=== PATIENT | male | born 1950 | race Native Hawaiian/Other Pacific Islander ===

== ENCOUNTER 2019-06-20 17:26 | Emergency (ER) | payer OTHER, SELFPAY ==
[2019-06-20] VITALS (17 sets, daily range): BP systolic 126–153; BP diastolic 67–120; PULSE 58–76; RESP 16–22; TEMP 36.6; O2SAT 92–98; BMI 31.4
--- NOTE | 2019-06-20 17:43 | W.ED.GENADLT ---
Documented by User: Jayy Rivera DO 06/20/19 17:46 HPI - General Adult General: Chief complaint: General Medical Stated complaint: gout Time Seen by Provider: 06/20/19 17:38 History of Present Illness: HPI narrative: Patient states he has pain on the entire left side of his body. It extends down his trunk through his leg and into his foot. Patient believed it was an attack of gout however there is no redness or inflammation anywhere along the extremity. Onset (ago): day(s) Location: back and lower extremity Severity: severe Quality: burning, aching and constant Pain Consistency: constant Relieving factors: none Exacerbating factors: movement Associated symptoms: Reports no associated symptoms Treatments prior to arrival: none Review of Systems General: Reports: 10 or more systems reviewed and unremarkable except in HPI and below Musc: Reports: back pain, extremity pain and joint pain; Denies: extremity swelling, joint swelling, redness, joint warmth or joint stiffness PFSH ED PFSH: Social History Smoking and tobacco status: current every day smoker Physical Exam Skin: COMMON NORMALS: no rashes or lesions noted, no wounds, skin turgor normal, no jaundice, no petechiae and no mottling GENERAL SKIN EXAM: no rashes or lesions noted and turgor normal Course Vital Signs: Vital signs: Vital Signs Temperature 97.8 F 06/20/19 17:46 Pulse Rate 64 06/20/19 22:10 Respiratory Rate 20 H 06/20/19 22:10 Blood Pressure 142/120 06/20/19 22:40 Pulse Oximetry 92 06/20/19 22:10 [facility] - General Adult Lab Data: Labs: Lab Results 06/20/19 06/20/19 06/20/19 Range/Units 17:55 17:55 17:55 WBC 15.6 H (4.0-10.0) 10^3/ uL RBC 5.60 H (4.1-5.3) 10^6/u L Hgb 15.4 (11.7-16.6) g/dL Hct 48.1 (42.0-52.0) % MCV 85.9 (80-94) fL MCH 27.5 L (28.0-34.0) pg MCHC 32.0 (30.0-36.0) g/dL RDW 16.0 H (12.1-15.1) % Plt Count 316 (130-400) 10^3/c mm MPV 11.0 H (7.4-10.4) fL Neut % (Auto) 84.2 % Lymph % (Auto) 7.1 % Routt % (Auto) 6.5 % Eos % (Auto) 0.8 % Baso % (Auto) 0.6 % Neut # (Auto) 13.1 H (1.8-7.7) 10^3/u L Lymph # (Auto) 1.1 (0.8-4.8) 10^3/u L Routt # (Auto) 1.0 H (0.2-0.9) 10^3/u L Eos # (Auto) 0.1 (0.0-0.8) 10^3/u L Baso # (Auto) 0.1 (0.0-0.1) 10^3/u L Nucleated RBC % (a uto) 0 % Nucleated RBCs # 0.0 /100WBC ESR 92 H (0-10) mm/hr D-Dimer (0-0.59) ug/mIFE U Sodium 135 L (136-145) mmol/L Potassium 4.4 (3.5-5.1) mmol/L Chloride 98 (98-107) mmol/L Carbon Dioxide 20 L (22-29) mmol/L Anion Gap 21.4 H (5-19) BUN 28 H (8-23) mg/dL Creatinine 1.2 (0.7-1.2) mg/dL Glucose 140 H (65-115) mg/dL Calculated Osmolal ity 279 L (285-295) mOsm/k g Lactate (0.5-2.2) mmol/L Uric Acid (3.4-7.0) mg/dL Calcium 10.6 H (8.5-10.5) mg/dL Magnesium (1.7-2.3) mg/dL Total Bilirubin 0.4 (0.15-1.2) mg/dL AST 12 (0-40) U/L ALT 9 (0-41) U/L Alkaline Phosphata se 148 H (40-130) IU/L Creatine Kinase (39-308) U/L C-Reactive Protein 86.6 H (0.0-4.9) mg/L Total Protein 8.9 H (6.6-8.7) g/dL Albumin 4.1 (3.5-5.2) g/dL Globulin 4.8 H (1.3-4.6) g/dL Urine Color (Yellow) Urine Appearance (CLEAR) Urine pH (5-7) Ur Specific Gravit y (1.005-1.030) Urine Protein (Negative) Urine Glucose (UA) (Normal) Urine Ketones (Negative) Urine Blood (Negative) Urine Nitrate (Negative) Urine Bilirubin (NEGATIVE) Urine Urobilinogen (Negative) mg/dL Ur Leukocyte Earlene ase (Negative) Urine RBC (0-2) /hpf Urine WBC (0-5) /hpf Ur Squamous Epith Cells (0-5) Urine Bacteria (NONE) 06/20/19 06/20/19 06/20/19 Range/Units 17:55 17:55 17:55 WBC (4.0-10.0) 10^3/ uL RBC (4.1-5.3) 10^6/u L Hgb (11.7-16.6) g/dL Hct (42.0-52.0) % MCV (80-94) fL MCH (28.0-34.0) pg MCHC (30.0-36.0) g/dL RDW (12.1-15.1) % Plt Count (130-400) 10^3/c mm MPV (7.4-10.4) fL Neut % (Auto) % Lymph % (Auto) % Routt % (Auto) % Eos % (Auto) % Baso % (Auto) % Neut # (Auto) (1.8-7.7) 10^3/u L Lymph # (Auto) (0.8-4.8) 10^3/u L Routt # (Auto) (0.2-0.9) 10^3/u L Eos # (Auto) (0.0-0.8) 10^3/u L Baso # (Auto) (0.0-0.1) 10^3/u L Nucleated RBC % (a uto) % Nucleated RBCs # /100WBC ESR (0-10) mm/hr D-Dimer 1.61 H (0-0.59) ug/mIFE U Sodium (136-145) mmol/L Potassium (3.5-5.1) mmol/L Chloride (98-107) mmol/L Carbon Dioxide (22-29) mmol/L Anion Gap (5-19) BUN (8-23) mg/dL Creatinine (0.7-1.2) mg/dL Glucose (65-115) mg/dL Calculated Osmolal ity (285-295) mOsm/k g Lactate (0.5-2.2) mmol/L Uric Acid 10.4 H (3.4-7.0) mg/dL Calcium (8.5-10.5) mg/dL Magnesium 2.1 (1.7-2.3) mg/dL Total Bilirubin (0.15-1.2) mg/dL AST (0-40) U/L ALT (0-41) U/L Alkaline Phosphata se (40-130) IU/L Creatine Kinase 33 L (39-308) U/L C-Reactive Protein (0.0-4.9) mg/L Total Protein (6.6-8.7) g/dL Albumin (3.5-5.2) g/dL Globulin (1.3-4.6) g/dL Urine Color (Yellow) Urine Appearance (CLEAR) Urine pH (5-7) Ur Specific Gravit y (1.005-1.030) Urine Protein (Negative) Urine Glucose (UA) (Normal) Urine Ketones (Negative) Urine Blood (Negative) Urine Nitrate (Negative) Urine Bilirubin (NEGATIVE) Urine Urobilinogen (Negative) mg/dL Ur Leukocyte Earlene ase (Negative) Urine RBC (0-2) /hpf Urine WBC (0-5) /hpf Ur Squamous Epith Cells (0-5) Urine Bacteria (NONE) 06/20/19 06/20/19 Range/Units 17:59 21:31 WBC (4.0-10.0) 10^3/ uL RBC (4.1-5.3) 10^6/u L Hgb (11.7-16.6) g/dL Hct (42.0-52.0) % MCV (80-94) fL MCH (28.0-34.0) pg MCHC (30.0-36.0) g/dL RDW (12.1-15.1) % Plt Count (130-400) 10^3/c mm MPV (7.4-10.4) fL Neut % (Auto) % Lymph % (Auto) % Routt % (Auto) % Eos % (Auto) % Baso % (Auto) % Neut # (Auto) (1.8-7.7) 10^3/u L Lymph # (Auto) (0.8-4.8) 10^3/u L Routt # (Auto) (0.2-0.9) 10^3/u L Eos # (Auto) (0.0-0.8) 10^3/u L Baso # (Auto) (0.0-0.1) 10^3/u L Nucleated RBC % (a uto) % Nucleated RBCs # /100WBC ESR (0-10) mm/hr D-Dimer (0-0.59) ug/mIFE U Sodium (136-145) mmol/L Potassium (3.5-5.1) mmol/L Chloride (98-107) mmol/L Carbon Dioxide (22-29) mmol/L Anion Gap (5-19) BUN (8-23) mg/dL Creatinine (0.7-1.2) mg/dL Glucose (65-115) mg/dL Calculated Osmolal ity (285-295) mOsm/k g Lactate 0.9 (0.5-2.2) mmol/L Uric Acid (3.4-7.0) mg/dL Calcium (8.5-10.5) mg/dL Magnesium (1.7-2.3) mg/dL Total Bilirubin (0.15-1.2) mg/dL AST (0-40) U/L ALT (0-41) U/L Alkaline Phosphata se (40-130) IU/L Creatine Kinase (39-308) U/L C-Reactive Protein (0.0-4.9) mg/L Total Protein (6.6-8.7) g/dL Albumin (3.5-5.2) g/dL Globulin (1.3-4.6) g/dL Urine Color Yellow (Yellow) Urine Appearance Clear (CLEAR) Urine pH 5 (5-7) Ur Specific Gravit y 1.020 (1.005-1.030) Urine Protein 2+ H (Negative) Urine Glucose (UA) Norm (Normal) Urine Ketones Negative (Negative) Urine Blood Neg (Negative) Urine Nitrate Negative (Negative) Urine Bilirubin Neg (NEGATIVE) Urine Urobilinogen Norm (Negative) mg/dL Ur Leukocyte Earlene ase Negative (Negative) Urine RBC None (0-2) /hpf Urine WBC None (0-5) /hpf Ur Squamous Epith Cells None (0-5) Urine Bacteria Trace (NONE) Discharge Plan Discharge Patient Disposition: Home, Self-Care Clinical Impression: Gout attack, Thyroid goiter Condition: Stable Prescriptions: New prednisone 10 mg tablets,dose pack See Rx Instructions .ROUTE .COMPLEX Qty: 21 RF: 0 Percocet 5-325 mg tablet 1 tab PO Q6H PRN (Reason: pain) Qty: 20 RF: 0 No Action hydrocodone-acetaminophen 5-325 mg tablet 1 tab PO Q6H PRN (Reason: Pain) RF: 0 tramadol 50 mg Tablet 50 mg PO Q6H PRN (Reason: Pain) RF: 0 pentoxifylline 400 mg Tablet Extended Release 400 mg PO BID RF: 0 tamsulosin 0.4 mg capsule 0.4 mg PO DAILY RF: 0 gemfibrozil 600 mg tablet 600 mg PO BID RF: 0 metformin 1,000 mg tablet 1,000 mg PO BID RF: 0 lisinopril 10 mg Tablet 10 mg PO DAILY RF: 0 indomethacin 50 mg capsule 50 mg PO TID RF: 0 glipizide 5 mg tablet 5 mg PO BID RF: 0 meclizine 25 mg Tablet,Chewable 25 mg PO TID PRN (Reason: NAUSEA/VOMITING) RF: 0 bupropion HCl 150 mg Tablet Extended Release 24 Hr 150 mg PO DAILY RF: 0 ferrous fumarate 325 mg (106 mg iron) Tablet 325 mg PO DAILY RF: 0 cholecalciferol (vitamin D3) 50 mcg (2,000 unit) capsule 50 mcg PO DAILY RF: 0 Discharge Orders: Discharge Order (Routine); Ordered 06/20/19 Ordered By: Maritza Sy Referrals: Karma Mullen MD [Physician] - 1-3 days Evan Rock DO [Primary Care Provider] - 1-3 days Discharge Diet: Advance as tolerated Discharge Activity: Increase activity as tolerated Patient Instructions: Gout, Acute Gouty Arthritis (ED) Activity Restrictions/Additional Instructions: Please return to the ER immediately for any of the signs or symptoms listed on your discharge instruction sheets, worsening/changing of your symptoms, you are not getting better as quickly as expected, or for ANY other cause or concerns. If your symptoms worsen or change you are welcome to return to the ER for further evaluation and care. Be certain to follow-up with your primary care physician regarding the abnormal findings of your thyroid. Discharge Date/Time: 06/20/19 22:47 Sign Out Sign Out Data: Patient Sign Out occurred on 06/20/19 at 18:15. Patient's care was discussed, and care was transferred from to Maritza Sy. Coding Level of Care Code ED Race Relations Professor for Chg Fwd Exam Problem Focused Documented by User: Maritza Sy 06/20/19 23:30 HPI - General Adult General: Chief complaint: General Medical Stated complaint: gout Time Seen by Provider: 06/20/19 17:38 [facility] ED PFSH: Social History Smoking and tobacco status: current every day smoker Course Vital Signs: Vital signs: Vital Signs Temperature 97.8 F 06/20/19 17:46 Pulse Rate 64 06/20/19 22:10 Respiratory Rate 20 H 06/20/19 22:10 Blood Pressure 142/120 06/20/19 22:40 Pulse Oximetry 92 06/20/19 22:10 MDM - General Adult MDM Narrative: Medical decision making narrative: 1800 - Patient signed over to me at change of shift from Dr. Rivera. Please see his note for his history, physical exam and medical decision-making notes. Patient tells me that he has had left-sided body pain for the past 2 weeks. Is been progressive since its onset. He complains of pain primarily in his left shoulder and his left hip and upper thigh. During this time he was seen at [facility] which consisted of a work-up of x-rays and labs which he says he was diagnosed with gout. Patient states that the medicine he was given is not helping. He denies any numbness or weakness or loss of sensation. He states his pain is just progressive to the point he cannot get around on his own at home. Any type of movement of these joints makes things worse and keeping them at rest makes them better. Patient states he had nothing similar to this in the past. On exam -patient is normocephalic and atraumatic, pupils equal round reactive to light and accommodation. Extraocular muscles are intact bilaterally, mucous membranes are pink and moist. Neck is supple without nuchal rigidity or meningismus. There is no cervical lymphadenopathy. There is no tenderness to palpation of the midline of his neck and he has full range of motion. Cardiovascular heart sounds are S1 and S2 without murmur, rub or gallop click or thrill. His heart had a regular rate and rhythm to auscultation. His lungs are clear to auscultation bilaterally without wheeze, rub or rhonchi. His abdomen was soft and nontender. There is no rebound, guarding or distention. Musculoskeletal exam was normal except for pain elicited by range of motion at the left shoulder and left hip upper femur. These areas did not demonstrate any type of skin lesion such as erythema, swelling, crepitance or pain to light touch. The joints were not hot or warm to the touch. Neurologically he was alert and oriented to person, place, time and situation. He had no gross motor deficits. His muscle strength was 5 out of 5 bilateral upper extremities and lower extremities. Sensation was intact to light sensation in and equal. 2200 -Nghia is feeling much better at this time. His uric acid is elevated and after a dose of steroids he is feeling much better. He states that the hydrocodone's that he received from [facility] did not take care of his pain. I discussed by phone all of the findings that were noted on his CT including the intimal flap, the mural thrombus, all of the findings that were abnormal. Dr. Ortiz feels that these are all chronic and they wrote no acute findings present. The patient is feeling so much better he is insisting upon going home at this time. I did offer him admission for pain control but he refuses. I see no evidence of infectious or metabolic etiology of his symptoms. I see no cardiac findings. Patient is now able to much more freely move his left shoulder and his left hip. He wants to go home so I will place him on a steroid taper as well as Percocet for pain. He agrees to follow-up with his doctor as well as an orthopedic doctor for further evaluation. He understands that he is welcome to return here at any time should his symptoms change/worsen or he simply change his mind. Lab Data: Attestation: I reviewed the patient's lab results. Labs: Lab Results 06/20/19 06/20/19 06/20/19 Range/Units 17:55 17:55 17:55 WBC 15.6 H (4.0-10.0) 10^3/ uL RBC 5.60 H (4.1-5.3) 10^6/u L Hgb 15.4 (11.7-16.6) g/dL Hct 48.1 (42.0-52.0) % MCV 85.9 (80-94) fL MCH 27.5 L (28.0-34.0) pg MCHC 32.0 (30.0-36.0) g/dL RDW 16.0 H (12.1-15.1) % Plt Count 316 (130-400) 10^3/c mm MPV 11.0 H (7.4-10.4) fL Neut % (Auto) 84.2 % Lymph % (Auto) 7.1 % Routt % (Auto) 6.5 % Eos % (Auto) 0.8 % Baso % (Auto) 0.6 % Neut # (Auto) 13.1 H (1.8-7.7) 10^3/u L Lymph # (Auto) 1.1 (0.8-4.8) 10^3/u L Routt # (Auto) 1.0 H (0.2-0.9) 10^3/u L Eos # (Auto) 0.1 (0.0-0.8) 10^3/u L Baso # (Auto) 0.1 (0.0-0.1) 10^3/u L Nucleated RBC % (a uto) 0 % Nucleated RBCs # 0.0 /100WBC ESR 92 H (0-10) mm/hr D-Dimer (0-0.59) ug/mIFE U Sodium 135 L (136-145) mmol/L Potassium 4.4 (3.5-5.1) mmol/L Chloride 98 (98-107) mmol/L Carbon Dioxide 20 L (22-29) mmol/L Anion Gap 21.4 H (5-19) BUN 28 H (8-23) mg/dL Creatinine 1.2 (0.7-1.2) mg/dL Glucose 140 H (65-115) mg/dL Calculated Osmolal ity 279 L (285-295) mOsm/k g Lactate (0.5-2.2) mmol/L Uric Acid (3.4-7.0) mg/dL Calcium 10.6 H (8.5-10.5) mg/dL Magnesium (1.7-2.3) mg/dL Total Bilirubin 0.4 (0.15-1.2) mg/dL AST 12 (0-40) U/L ALT 9 (0-41) U/L Alkaline Phosphata se 148 H (40-130) IU/L Creatine Kinase (39-308) U/L C-Reactive Protein 86.6 H (0.0-4.9) mg/L Total Protein 8.9 H (6.6-8.7) g/dL Albumin 4.1 (3.5-5.2) g/dL Globulin 4.8 H (1.3-4.6) g/dL Urine Color (Yellow) Urine Appearance (CLEAR) Urine pH (5-7) Ur Specific Gravit y (1.005-1.030) Urine Protein (Negative) Urine Glucose (UA) (Normal) Urine Ketones (Negative) Urine Blood (Negative) Urine Nitrate (Negative) Urine Bilirubin (NEGATIVE) Urine Urobilinogen (Negative) mg/dL Ur Leukocyte Earlene ase (Negative) Urine RBC (0-2) /hpf Urine WBC (0-5) /hpf Ur Squamous Epith Cells (0-5) Urine Bacteria (NONE) 06/20/19 06/20/19 06/20/19 Range/Units 17:55 17:55 17:55 WBC (4.0-10.0) 10^3/ uL RBC (4.1-5.3) 10^6/u L Hgb (11.7-16.6) g/dL Hct (42.0-52.0) % MCV (80-94) fL MCH (28.0-34.0) pg MCHC (30.0-36.0) g/dL RDW (12.1-15.1) % Plt Count (130-400) 10^3/c mm MPV (7.4-10.4) fL Neut % (Auto) % Lymph % (Auto) % Routt % (Auto) % Eos % (Auto) % Baso % (Auto) % Neut # (Auto) (1.8-7.7) 10^3/u L Lymph # (Auto) (0.8-4.8) 10^3/u L Routt # (Auto) (0.2-0.9) 10^3/u L Eos # (Auto) (0.0-0.8) 10^3/u L Baso # (Auto) (0.0-0.1) 10^3/u L Nucleated RBC % (a uto) % Nucleated RBCs # /100WBC ESR (0-10) mm/hr D-Dimer 1.61 H (0-0.59) ug/mIFE U Sodium (136-145) mmol/L Potassium (3.5-5.1) mmol/L Chloride (98-107) mmol/L Carbon Dioxide (22-29) mmol/L Anion Gap (5-19) BUN (8-23) mg/dL Creatinine (0.7-1.2) mg/dL Glucose (65-115) mg/dL Calculated Osmolal ity (285-295) mOsm/k g Lactate (0.5-2.2) mmol/L Uric Acid 10.4 H (3.4-7.0) mg/dL Calcium (8.5-10.5) mg/dL Magnesium 2.1 (1.7-2.3) mg/dL Total Bilirubin (0.15-1.2) mg/dL AST (0-40) U/L ALT (0-41) U/L Alkaline Phosphata se (40-130) IU/L Creatine Kinase 33 L (39-308) U/L C-Reactive Protein (0.0-4.9) mg/L Total Protein (6.6-8.7) g/dL Albumin (3.5-5.2) g/dL Globulin (1.3-4.6) g/dL Urine Color (Yellow) Urine Appearance (CLEAR) Urine pH (5-7) Ur Specific Gravit y (1.005-1.030) Urine Protein (Negative) Urine Glucose (UA) (Normal) Urine Ketones (Negative) Urine Blood (Negative) Urine Nitrate (Negative) Urine Bilirubin (NEGATIVE) Urine Urobilinogen (Negative) mg/dL Ur Leukocyte Earlene ase (Negative) Urine RBC (0-2) /hpf Urine WBC (0-5) /hpf Ur Squamous Epith Cells (0-5) Urine Bacteria (NONE) 06/20/19 06/20/19 Range/Units 17:59 21:31 WBC (4.0-10.0) 10^3/ uL RBC (4.1-5.3) 10^6/u L Hgb (11.7-16.6) g/dL Hct (42.0-52.0) % MCV (80-94) fL MCH (28.0-34.0) pg MCHC (30.0-36.0) g/dL RDW (12.1-15.1) % Plt Count (130-400) 10^3/c mm MPV (7.4-10.4) fL Neut % (Auto) % Lymph % (Auto) % Routt % (Auto) % Eos % (Auto) % Baso % (Auto) % Neut # (Auto) (1.8-7.7) 10^3/u L Lymph # (Auto) (0.8-4.8) 10^3/u L Routt # (Auto) (0.2-0.9) 10^3/u L Eos # (Auto) (0.0-0.8) 10^3/u L Baso # (Auto) (0.0-0.1) 10^3/u L Nucleated RBC % (a uto) % Nucleated RBCs # /100WBC ESR (0-10) mm/hr D-Dimer (0-0.59) ug/mIFE U Sodium (136-145) mmol/L Potassium (3.5-5.1) mmol/L Chloride (98-107) mmol/L Carbon Dioxide (22-29) mmol/L Anion Gap (5-19) BUN (8-23) mg/dL Creatinine (0.7-1.2) mg/dL Glucose (65-115) mg/dL Calculated Osmolal ity (285-295) mOsm/k g Lactate 0.9 (0.5-2.2) mmol/L Uric Acid (3.4-7.0) mg/dL Calcium (8.5-10.5) mg/dL Magnesium (1.7-2.3) mg/dL Total Bilirubin (0.15-1.2) mg/dL AST (0-40) U/L ALT (0-41) U/L Alkaline Phosphata se (40-130) IU/L Creatine Kinase (39-308) U/L C-Reactive Protein (0.0-4.9) mg/L Total Protein (6.6-8.7) g/dL Albumin (3.5-5.2) g/dL Globulin (1.3-4.6) g/dL Urine Color Yellow (Yellow) Urine Appearance Clear (CLEAR) Urine pH 5 (5-7) Ur Specific Gravit y 1.020 (1.005-1.030) Urine Protein 2+ H (Negative) Urine Glucose (UA) Norm (Normal) Urine Ketones Negative (Negative) Urine Blood Neg (Negative) Urine Nitrate Negative (Negative) Urine Bilirubin Neg (NEGATIVE) Urine Urobilinogen Norm (Negative) mg/dL Ur Leukocyte Earlene ase Negative (Negative) Urine RBC None (0-2) /hpf Urine WBC None (0-5) /hpf Ur Squamous Epith Cells None (0-5) Urine Bacteria Trace (NONE) Imaging Data^: CT Head: Radiologist's impression: [place] [address] CT Scan Report Signed Patient: Nghia Giron Unit #: [id number] : 1950 Age/Sex: 69 / M ADM Date: 06/20/19 Loc: ER Room/Bed: Attending Dr: Ordering Provider/Ordering MD: Maritza Sy DO Date of Service: 06/20/19 Procedure(s): CT head wo con* [id number] Accession Number(s): [id number] Report Number: [id number] PROCEDURE INFORMATION: Exam: CT Head Without Contrast Exam date and time: 06/20/2019 7:00 PM Age: 69 years old Clinical indication: Pain; Headache; Additional info: Lue weakness TECHNIQUE: Imaging protocol: Computed tomography of the head without contrast. Radiation optimization: All CT scans at this facility use at least one of these dose optimization techniques: automated exposure control; mA and/or kV adjustment per patient size (includes targeted exams where dose is matched to clinical indication); or iterative reconstruction. COMPARISON: MRI Head w/wo* [id number] 09/21/2018 12:07 PM RADIATION DOSE METRICS: Total DLP: 784.51 mGy-cm FINDINGS: Brain: No visible evidence of active or acute intracranial pathologic process. No visible evidence for intracranial hemorrhage. 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 Cerebral atrophic changes greater than that anticipated for patient's chronological age. Ventricles: No ventriculomegaly. Bones/joints: Unremarkable. No acute fracture. Sinuses: Visualized sinuses are unremarkable. No fluid levels. Mastoid air cells: Visualized mastoid air cells are well aerated. Soft tissues: Unremarkable. CT/CT head wo con* [id number] IMPRESSION: 1. No visible evidence of active or acute intracranial pathologic process. 2. Advanced small vessel ischemic disease with senile periventricular Radiation Dose CTDIVOL = (mGy): DLP = 784.51 (mGy-cm) Dictated By: Mike Triplett Signed By: Mike Triplett Signed Date/Time: 06/20/191919 DD/ 18 CT Cervical Spine: Radiologist's impression: [place] [address] CT Scan Report Signed Patient: Nghia Giron Unit #: [id number] : 1950 Age/Sex: 69 / M ADM Date: 06/20/19 Loc: ER Room/Bed: Attending Dr: Ordering Provider/Ordering MD: Maritza Sy DO Date of Service: 06/20/19 Procedure(s): CT cervical spin wo con* [id number] Accession Number(s): [id number] Report Number: [id number] PROCEDURE INFORMATION: Exam: CT Cervical Spine Without Contrast Exam date and time: 06/20/2019 7:00 PM Age: 69 years old Clinical indication: Neck pain TECHNIQUE: Imaging protocol: Computed tomography images of the cervical spine without contrast. Radiation optimization: All CT scans at this facility use at least one of these dose optimization techniques: automated exposure control; mA and/or kV adjustment per patient size (includes targeted exams where dose is matched to clinical indication); or iterative reconstruction. COMPARISON: No relevant prior studies available. RADIATION DOSE METRICS: Total DLP: 866.3 mGy-cm FINDINGS: Vertebrae: No acute fracture. Normal alignment. Discs/Spinal canal/Neural foramina: Advanced degenerative disease and degenerative disc disease with disc space height loss and associated spondylosis deformans C5/C6 and C6/C7. Less significant degenerative disc disease C7/T1. Facet arthrosis. Right paramedian focal annular disc bulge osteophyte complex C6/C7 with right neural foraminal stenosis and mild right anterolateral subtle cord effacement. Soft tissues: Unremarkable for age. Thyroid: Incidental note of thyromegaly. Lungs: Lung apices are normal. CT/CT cervical spin wo con* [id number] IMPRESSION: 1. Nonacute. 2. Advanced degenerative disease and degenerative disc disease with disc space height loss and associated spondylosis deformans C5/C6 and C6/C7. Radiation Dose CTDIVOL = (mGy): DLP = 866.3 (mGy-cm) Dictated By: Mike Triplett Signed By: Mike Triplett Signed Date/Time: 06/20/191925 DD/ 23 CTA AORTA: Radiologist's impression: [place] [address] CT Scan Report Signed Patient: Nghia Giron Unit #: [id number] : 1950 Age/Sex: 69 / M ADM Date: 06/20/19 Loc: ER Room/Bed: Attending Dr: Ordering Provider/Ordering MD: Maritza Sy DO Date of Service: 06/20/19 Procedure(s): CT angio chest abdomen pelvis Accession Number(s): [id number] Report Number: [id number] PROCEDURE INFORMATION: Exam: CT Angiography Chest With Contrast Exam date and time: 06/20/2019 8:55 PM Age: 69 years old Clinical indication: Chest pain; Abdominal pain; Generalized; Prior surgery; Surgery type: Gb, appy, bowel TECHNIQUE: Imaging protocol: Computed tomographic angiography of the chest with intravenous contrast. 3D rendering: MIP and/or 3D reconstructed images were created by the technologist. Radiation optimization: All CT scans at this facility use at least one of these dose optimization techniques: automated exposure control; mA and/or kV adjustment per patient size (includes targeted exams where dose is matched to clinical indication); or iterative reconstruction. Contrast material: VISI 320; Contrast volume: 95 ml; Contrast route: IV; COMPARISON: [facility] Abdomen/Pelvis [id number] 12/19/2018 2:38 PM RADIATION DOSE METRICS: Total DLP: 2926.3 mGy-cm FINDINGS: Pulmonary arteries: No grossly visible pulmonary arterial thrombus. Please note this was not a CTA pulmonary embolism protocol. Aorta: The thoracic aorta is nonaneurysmal. No visible intimal flap or dissection. Mild intramural thrombus. Aortic arch trunk vessels patent without evidence for hemodynamically significant stenosis. No grossly visible pulmonary embolism. Thyroid: Multinodular thyroid goiter with thyromegaly. Consideration might be given to follow-up ultrasound of the thyroid for further evaluation. Lungs: Rare focus of peripheral acinar emphysema. Mild dependent atelectasis. No visible active interstitial or alveolar airspace disease. Pleural space: Unremarkable. No pneumothorax. No pleural effusion. Heart: Cardiomegaly with left ventricular prominence. Coronary artery disease. Lymph nodes: No visible middle mediastinal or hilar lymphadenopathy. Marginally prominent posterior mediastinal right paraesophageal lymph node measuring 19 mm of indeterminate clinical significance. Bones/joints: Age-appropriate degenerative disease. Soft tissues: Unremarkable. IMPRESSION: 1. No visible evidence of acute cardiopulmonary process. 2. No visible evidence of aneurysmal dilatation of the thoracic aorta. 3. Multinodular thyroid goiter with thyromegaly. Consideration might be given to follow-up ultrasound of the thyroid for further evaluation. 4. Cardiomegaly with coronary artery disease. PROCEDURE INFORMATION: Exam: CT Angiography Abdomen and Pelvis With Contrast Exam date and time: 06/20/2019 8:55 PM Age: 69 years old Clinical indication: Chest pain; Abdominal pain; Generalized; Prior surgery; Surgery type: Gb, appy, bowel TECHNIQUE: Imaging protocol: Computed tomographic angiography of the abdomen and pelvis with intravenous contrast material. 3D rendering: MIP and/or 3D reconstructed images were created by the technologist. Radiation optimization: All CT scans at this facility use at least one of these dose optimization techniques: automated exposure control; mA and/or kV adjustment per patient size (includes targeted exams where dose is matched to clinical indication); or iterative reconstruction. Contrast material: VISI 320; Contrast volume: 95 ml; Contrast route: IV; COMPARISON: CTA Abdomen/Pelvis [id number] 12/19/2018 2:38 PM RADIATION DOSE METRICS: Total DLP: 2926.3 mGy-cm FINDINGS: Aorta: The abdominal aorta is nonaneurysmal (maximum diameter less than or equal to 30 mm). Again note of extensive intramural thrombus that has remained stable since prior study. Patent celiac and SMA arteries without visible hemodynamically significant stenosis. 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 Duplex renal arteries bilaterally without visible hemodynamically significant stenosis. 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 Maximum diameter of the right common iliac artery 20 mm and the left 14 mm. Again note of a short-segment intimal flap of the mid left common iliac artery stable since last evaluation. 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 Extensive arterial sclerotic disease. Celiac trunk and mesenteric arteries: See Aorta finding. Renal arteries: See Aorta finding. Right iliac arteries: See Aorta finding. Left iliac arteries: See Aorta finding. Liver: Assessment liver again reveals suspected right hepatic lobe cavernous hemangiomas that have remained stable since prior study. Gallbladder and bile ducts: Status post cholecystectomy. No intra or extrahepatic biliary ectasia. Pancreas: Pancreas unremarkable. No pancreatic ductal ectasia. Spleen: Spleen unremarkable. Adrenals: Adrenal glands unremarkable. Kidneys and ureters: Kidney stable. Again note of cortical scarring inferior pole left kidney. No hydronephrosis or perinephric fluid. No visible nephrolithiasis. Stomach and bowel: Nonobstructive bowel pattern. Diverticulosis coli without evidence for diverticulitis. No visible adynamic or reactive ileus. Appendix: No evidence of appendicitis. Intraperitoneal space: No visible mesenteritis/panniculitis or mesenteric lymphadenitis/lymphadenopathy. No visible intraperitoneal ascites. Lymph nodes: Unremarkable. No enlarged lymph nodes. Bladder: Urinary bladder without filling defect. Reproductive: Prostate hypertrophy. Bones/joints: Age-appropriate degenerative disease. Soft tissues: Unremarkable. Other findings: No appreciable significant change since 12/19/2018. CT/CT angio chest abdomen pelvis IMPRESSION: 1. 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 2. Again note of occlusion of the right superficial femoral artery. 3. 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 4. 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 5. Numerous other non nonurgent, nonemergent, chronic, and age related findings as detailed in text above. Radiation Dose CTDIVOL = (mGy): DLP = 2926.3 2926.3 (mGy-cm) Dictated By: Mike Triplett Signed By: Mike Triplett Signed Date/Time: 06/20/192135 DD/ 34 Discharge Plan Discharge Patient Disposition: Home, Self-Care Clinical Impression: Gout attack, Thyroid goiter Condition: Stable Prescriptions: New prednisone 10 mg tablets,dose pack See Rx Instructions .ROUTE .COMPLEX Qty: 21 RF: 0 Percocet 5-325 mg tablet 1 tab PO Q6H PRN (Reason: pain) Qty: 20 RF: 0 No Action hydrocodone-acetaminophen 5-325 mg tablet 1 tab PO Q6H PRN (Reason: Pain) RF: 0 tramadol 50 mg Tablet 50 mg PO Q6H PRN (Reason: Pain) RF: 0 pentoxifylline 400 mg Tablet Extended Release 400 mg PO BID RF: 0 tamsulosin 0.4 mg capsule 0.4 mg PO DAILY RF: 0 gemfibrozil 600 mg tablet 600 mg PO BID RF: 0 metformin 1,000 mg tablet 1,000 mg PO BID RF: 0 lisinopril 10 mg Tablet 10 mg PO DAILY RF: 0 indomethacin 50 mg capsule 50 mg PO TID RF: 0 glipizide 5 mg tablet 5 mg PO BID RF: 0 meclizine 25 mg Tablet,Chewable 25 mg PO TID PRN (Reason: NAUSEA/VOMITING) RF: 0 bupropion HCl 150 mg Tablet Extended Release 24 Hr 150 mg PO DAILY RF: 0 ferrous fumarate 325 mg (106 mg iron) Tablet 325 mg PO DAILY RF: 0 cholecalciferol (vitamin D3) 50 mcg (2,000 unit) capsule 50 mcg PO DAILY RF: 0 Discharge Orders: Discharge Order (Routine); Ordered 06/20/19 Ordered By: Maritza Sy Referrals: Karma Mullen MD [Physician] - 1-3 days Evan Rock DO [Primary Care Provider] - 1-3 days Discharge Diet: Advance as tolerated Discharge Activity: Increase activity as tolerated Patient Instructions: Gout, Acute Gouty Arthritis (ED) Activity Restrictions/Additional Instructions: Please return to the ER immediately for any of the signs or symptoms listed on your discharge instruction sheets, worsening/changing of your symptoms, you are not getting better as quickly as expected, or for ANY other cause or concerns. If your symptoms worsen or change you are welcome to return to the ER for further evaluation and care. Be certain to follow-up with your primary care physician regarding the abnormal findings of your thyroid. Discharge Date/Time: 06/20/19 22:47 Sign Out Sign Out Data: Patient Sign Out occurred on 06/20/19 at 18:15. Patient's care was discussed, and care was transferred from to Maritza Sy. Coding Level of Care Code ED Race Relations Professor for Chg Fwd Exam Problem Focused
--- NOTE | 2019-06-20 17:46 | USCV_ITS ---
BonitaNghia alegre Age: 69 Gender: M : 1950 Exam Date: 06/20/2019 18:19 Ordering Phys: Jayy Rivera DO Technologist: Maurice Umanzor Exam Location: [facility]_ Indication: LT LEG PAIN AND EDEMA HISTORY: Lower extremity swelling. PROCEDURES: Venous duplex imaging was performed in only the left lower extremity. The following venous structures were evaluated: common femoral vein, profunda vein, proximal portion of the greater saphenous vein, superficial femoral vein, and the popliteal vein. In addition, the posterior tibial and peroneal trunk were evaluated. FINDINGS: Normal 2-D Doppler and augmentation and compressibility throughout the lower extremity venous structures. Additional imaging through the proximal calf veins also reveals no thrombus. Limited evaluation of the greater saphenous vein is patent with no thrombus. CONCLUSIONS No DVT left lower extremity. Dr. Danni Segovia DO (Electronically Signed) Final Date: 21 June 2019 08:28 S
[2019-06-20] MEDS: ondansetron 2 mg/ML SDV 2 mL 4 MG IVP (17:49)
[2019-06-20] MEDS: morphine 4 mg/mL SDV 1 mL 2 MG IVP (17:49)
[2019-06-20] MEDS: sodium chloride 0.9% 500 ML IV (18:01)
--- NOTE | 2019-06-20 18:04 | PC.NURSE ---
SPO2 88%, pt placed on 2L per [place]. notified.
[2019-06-20 18:40] LABS: Basophils # 0.1 10^3/uL (0.0-0.1); Basophils % 0.6 %; Eosinophils # 0.1 10^3/uL (0.0-0.8); Eosinophils % 0.8 %; Hematocrit 48.1 % (42.0-52.0); Hemoglobin 15.4 g/dL (11.7-16.6); Lymphocytes # 1.1 10^3/uL (0.8-4.8); Lymphocytes % 7.1 %; Mean Corpuscular Hemoglobin 27.5 pg (28.0-34.0); Mean Corpuscular Volume 85.9 fL (80-94); Monocytes % 6.5 %; Neutrophils # 13.1 10^3/uL (1.8-7.7); Neutrophils % 84.2 %; Nucleated Red Blood Cells % 0 %; Platelet Count 316 10^3/cmm (130-400); White Blood Count 15.6 10^3/uL (4.0-10.0)
--- NOTE | 2019-06-20 18:40 | CTR_ITS ---
PROCEDURE INFORMATION: Exam: CT Head Without Contrast Exam date and time: 06/20/2019 7:00 PM Age: 69 years old Clinical indication: Pain; Headache; Additional info: Lue weakness TECHNIQUE: Imaging protocol: Computed tomography of the head without contrast. Radiation optimization: All CT scans at this facility use at least one of these dose optimization techniques: automated exposure control; mA and/or kV adjustment per patient size (includes targeted exams where dose is matched to clinical indication); or iterative reconstruction. COMPARISON: MRI Head w/wo* [id number] 09/21/2018 12:07 PM RADIATION DOSE METRICS: Total DLP: 784.51 mGy-cm FINDINGS: Brain: No visible evidence of active or acute intracranial pathologic process. No visible evidence for intracranial hemorrhage. 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 Cerebral atrophic changes greater than that anticipated for patient's chronological age. Ventricles: No ventriculomegaly. Bones/joints: Unremarkable. No acute fracture. Sinuses: Visualized sinuses are unremarkable. No fluid levels. Mastoid air cells: Visualized mastoid air cells are well aerated. Soft tissues: Unremarkable. CT/CT head wo con* [id number] IMPRESSION: 1. No visible evidence of active or acute intracranial pathologic process. 2. Advanced small vessel ischemic disease with senile periventricular Radiation Dose CTDIVOL = (mGy): DLP = 784.51 (mGy-cm)
--- NOTE | 2019-06-20 18:40 | XR_ITS ---
WS: [id number] LEFT SHOULDER: 2 VIEW(S) TECHNIQUE: Internal and external rotation. HISTORY: PAIN COMPARISON: None available. Severe degenerative changes at the AC joint. Hypertrophic bone formation with osteophytes and subchon dral cystic disease. Additional subchondral cystic changes over the humeral head. Visualized LEFT upper lung is clear. XR/XR shoulder LT min 2V* [id number] IMPRESSION: Severe degenerative changes at the AC joint and mild at the humeral head.
--- NOTE | 2019-06-20 18:40 | XR_ITS ---
WS: [id number] PELVIS AND LEFT HIP HISTORY: PAIN COMPARISON: None available. LEFT hip: No acute fracture or dislocation. No significant narrowing of the hip joint. No bone destru ction. No soft tissue abnormality. Minimal bilateral hip joint arthritis. No pelvic fracture or soft tissue abnormality. XR/XR hip LT 2-3V wo/w pel* [id number] IMPRESSION: 1. No hip fracture. 2. Mild bilateral hip joint arthritis.
--- NOTE | 2019-06-20 18:40 | CTR_ITS ---
PROCEDURE INFORMATION: Exam: CT Cervical Spine Without Contrast Exam date and time: 06/20/2019 7:00 PM Age: 69 years old Clinical indication: Neck pain TECHNIQUE: Imaging protocol: Computed tomography images of the cervical spine without contrast. Radiation optimization: All CT scans at this facility use at least one of these dose optimization techniques: automated exposure control; mA and/or kV adjustment per patient size (includes targeted exams where dose is matched to clinical indication); or iterative reconstruction. COMPARISON: No relevant prior studies available. RADIATION DOSE METRICS: Total DLP: 866.3 mGy-cm FINDINGS: Vertebrae: No acute fracture. Normal alignment. Discs/Spinal canal/Neural foramina: Advanced degenerative disease and degenerative disc disease with disc space height loss and associated spondylosis deformans C5/C6 and C6/C7. Less significant degenerative disc disease C7/T1. Facet arthrosis. Right paramedian focal annular disc bulge osteophyte complex C6/C7 with right neural foraminal stenosis and mild right anterolateral subtle cord effacement. Soft tissues: Unremarkable for age. Thyroid: Incidental note of thyromegaly. Lungs: Lung apices are normal. CT/CT cervical spin wo con* [id number] IMPRESSION: 1. Nonacute. 2. Advanced degenerative disease and degenerative disc disease with disc space height loss and associated spondylosis deformans C5/C6 and C6/C7. Radiation Dose CTDIVOL = (mGy): DLP = 866.3 (mGy-cm)
--- NOTE | 2019-06-20 18:40 | XR_ITS ---
WS: [id number] PORTABLE CHEST HISTORY: PAIN COMPARISON: None available. Linear atelectasis at the LEFT lung base. Otherwise lungs are clear. No pleural effusion or pneumotho rax. Cardiac size: Normal. Mediastinum/Aorta: Normal mediastinum. No osseous abnormality seen. XR/XR chest 1V portable [id number] IMPRESSION: Subsegmental LEFT lower lobe atelectasis.
[2019-06-20 18:59] LABS: Lactate (Lactic Acid level) 0.9 mmol/L (0.5-2.2)
[2019-06-20 19:02] LABS: Alanine Aminotransferase 9 U/L (0-41); Albumin Level 4.1 g/dL (3.5-5.2); Alkaline Phosphatase 148 IU/L (40-130); Anion Gap 21.4 (5-19); Aspartate Amino Transferase 12 U/L (0-40); Blood Urea Nitrogen 28 mg/dL (8-23); Calcium 10.6 mg/dL (8.5-10.5); Carbon Dioxide 20 mmol/L (22-29); Chloride 98 mmol/L (98-107); Globulin 4.8 g/dL (1.3-4.6); Glucose 140 mg/dL (65-115); Osmolality Calculated 279 mOsm/kg (285-295); Potassium 4.4 mmol/L (3.5-5.1); Sodium 135 mmol/L (136-145); Total Bilirubin 0.4 mg/dL (0.15-1.2); Total Protein 8.9 g/dL (6.6-8.7)
[2019-06-20 19:03] LABS: Creatine Phosphokinase 33 U/L (39-308); Magnesium 2.1 mg/dL (1.7-2.3)
[2019-06-20 19:16] LABS: C Reactive Protein 86.6 mg/L (0.0-4.9); Uric Acid 10.4 mg/dL (3.4-7.0)
[2019-06-20 19:47] LABS: Erythrocyte Sedimentation Rate 92 mm/hr (0-10)
[2019-06-20 20:22] LABS: D Dimer 1.61 ug/mIFEU (0-0.59)
--- NOTE | 2019-06-20 20:37 | CTR_ITS ---
PROCEDURE INFORMATION: Exam: CT Angiography Chest With Contrast Exam date and time: 06/20/2019 8:55 PM Age: 69 years old Clinical indication: Chest pain; Abdominal pain; Generalized; Prior surgery; Surgery type: Gb, appy, bowel TECHNIQUE: Imaging protocol: Computed tomographic angiography of the chest with intravenous contrast. 3D rendering: MIP and/or 3D reconstructed images were created by the technologist. Radiation optimization: All CT scans at this facility use at least one of these dose optimization techniques: automated exposure control; mA and/or kV adjustment per patient size (includes targeted exams where dose is matched to clinical indication); or iterative reconstruction. Contrast material: VISI 320; Contrast volume: 95 ml; Contrast route: IV; COMPARISON: CTA Abdomen/Pelvis [id number] 12/19/2018 2:38 PM RADIATION DOSE METRICS: Total DLP: 2926.3 mGy-cm FINDINGS: Pulmonary arteries: No grossly visible pulmonary arterial thrombus. Please note this was not a CTA pulmonary embolism protocol. Aorta: The thoracic aorta is nonaneurysmal. No visible intimal flap or dissection. Mild intramural thrombus. Aortic arch trunk vessels patent without evidence for hemodynamically significant stenosis. No grossly visible pulmonary embolism. Thyroid: Multinodular thyroid goiter with thyromegaly. Consideration might be given to follow-up ultrasound of the thyroid for further evaluation. Lungs: Rare focus of peripheral acinar emphysema. Mild dependent atelectasis. No visible active interstitial or alveolar airspace disease. Pleural space: Unremarkable. No pneumothorax. No pleural effusion. Heart: Cardiomegaly with left ventricular prominence. Coronary artery disease. Lymph nodes: No visible middle mediastinal or hilar lymphadenopathy. Marginally prominent posterior mediastinal right paraesophageal lymph node measuring 19 mm of indeterminate clinical significance. Bones/joints: Age-appropriate degenerative disease. Soft tissues: Unremarkable. IMPRESSION: 1. No visible evidence of acute cardiopulmonary process. 2. No visible evidence of aneurysmal dilatation of the thoracic aorta. 3. Multinodular thyroid goiter with thyromegaly. Consideration might be given to follow-up ultrasound of the thyroid for further evaluation. 4. Cardiomegaly with coronary artery disease. PROCEDURE INFORMATION: Exam: CT Angiography Abdomen and Pelvis With Contrast Exam date and time: 06/20/2019 8:55 PM Age: 69 years old Clinical indication: Chest pain; Abdominal pain; Generalized; Prior surgery; Surgery type: Gb, appy, bowel TECHNIQUE: Imaging protocol: Computed tomographic angiography of the abdomen and pelvis with intravenous contrast material. 3D rendering: MIP and/or 3D reconstructed images were created by the technologist. Radiation optimization: All CT scans at this facility use at least one of these dose optimization techniques: automated exposure control; mA and/or kV adjustment per patient size (includes targeted exams where dose is matched to clinical indication); or iterative reconstruction. Contrast material: VISI 320; Contrast volume: 95 ml; Contrast route: IV; COMPARISON: CTA Abdomen/Pelvis [id number] 12/19/2018 2:38 PM RADIATION DOSE METRICS: Total DLP: 2926.3 mGy-cm FINDINGS: Aorta: The abdominal aorta is nonaneurysmal (maximum diameter less than or equal to 30 mm). Again note of extensive intramural thrombus that has remained stable since prior study. Patent celiac and SMA arteries without visible hemodynamically significant stenosis. 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 Duplex renal arteries bilaterally without visible hemodynamically significant stenosis. 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 Maximum diameter of the right common iliac artery 20 mm and the left 14 mm. Again note of a short-segment intimal flap of the mid left common iliac artery stable since last evaluation. 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 Extensive arterial sclerotic disease. Celiac trunk and mesenteric arteries: See Aorta finding. Renal arteries: See Aorta finding. Right iliac arteries: See Aorta finding. Left iliac arteries: See Aorta finding. Liver: Assessment liver again reveals suspected right hepatic lobe cavernous hemangiomas that have remained stable since prior study. Gallbladder and bile ducts: Status post cholecystectomy. No intra or extrahepatic biliary ectasia. Pancreas: Pancreas unremarkable. No pancreatic ductal ectasia. Spleen: Spleen unremarkable. Adrenals: Adrenal glands unremarkable. Kidneys and ureters: Kidney stable. Again note of cortical scarring inferior pole left kidney. No hydronephrosis or perinephric fluid. No visible nephrolithiasis. Stomach and bowel: Nonobstructive bowel pattern. Diverticulosis coli without evidence for diverticulitis. No visible adynamic or reactive ileus. Appendix: No evidence of appendicitis. Intraperitoneal space: No visible mesenteritis/panniculitis or mesenteric lymphadenitis/lymphadenopathy. No visible intraperitoneal ascites. Lymph nodes: Unremarkable. No enlarged lymph nodes. Bladder: Urinary bladder without filling defect. Reproductive: Prostate hypertrophy. Bones/joints: Age-appropriate degenerative disease. Soft tissues: Unremarkable. Other findings: No appreciable significant change since 12/19/2018. CT/CT angio chest abdomen pelvis IMPRESSION: 1. 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 2. Again note of occlusion of the right superficial femoral artery. 3. 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 4. 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 5. Numerous other non nonurgent, nonemergent, chronic, and age related findings as detailed in text above. Radiation Dose CTDIVOL = (mGy): DLP = 2926.3~2926.3 (mGy-cm)
[2019-06-20] MEDS: iodixanol 320 mg/mL 100mL Btl IV (20:59)
[2019-06-20 21:57] LABS: Add Urine Culture? No; Bacteria Urine TRACE; Bilirubin Urine Neg (NEGATIVE); Blood Urine Neg (Negative); Glucose Urine UA Norm (Normal); Ketones Urine Negative (Negative); Leukocyte Esterase Urine Negative (Negative); Nitrate Urine Negative (Negative); Protein Urine 2+ (Negative); Urine Appearance Clear (CLEAR); Urine Color Yellow (Yellow); Urobilinogen Urine Norm (Negative); pH Urine 5 (5-7)
[2019-06-20] MEDS: predniSONE 20 mg Tablet 60 MG PO (22:04)
[2019-06-20] MEDS: oxyCODONE-APAP 5-325 mg Tablet 1 TAB PO (22:05)
--- NOTE | 2019-06-21 11:52 | DCPLANNER ---
finish production manager had message to schedule a follow up appointment for patient with ortho. finish production manager called the ortho clinic, spoke with Kae, gave clinic patients information. finish production manager was told that patients information would be printed and reviewed. Clinic will call mental health case manager and patient with appointment information. Patient has [facility], mental health case manager called [facility] and informed the [facility] that patient was seen in the ED and that patient was to follow up with ortho.
--- NOTE | 2019-06-26 14:26 | DCPLANNER ---
Jannie from [facility] called rn case mgr and left a voicemail for rn case mgr that stated patients records were reviewed, and that patient needs to follow up with primary care physician. Clinic will call patient and tell patient that he will need to follow up with primary care.
== END 2019-06-20 22:47 | disposition home or self-care (01) ==
PROVIDERS: Family Medicine; Emergency Provider Emergency Medicine; Family Provider Emergency Medicine Emergency Medical Services; PCP Emergency Medicine Emergency Medical Services
DX: M10.9 Gout, unspecified (principal); E04.9 Nontoxic goiter, unspecified; F17.210 Nicotine dependence, cigarettes, uncomplicated; M79.605 Pain in left leg
CPT/HCPCS: 12345; 36415; 70450; 71045; 71275; 72125; 73030; 73502; 74174; 80053; 81001; 82550; 83605; 83735; 84550; 85025; 85378; 85651; 86140; 93971; 96361; 96374; 96375; 99283; 99284; J0131; J2270; J2405; J2930; J7040; J7512; Q9967

== ENCOUNTER 2019-07-06 17:40 | Inpatient (IN) | payer OTHER, MEDICARE, SELFPAY ==
[2019-07-06] VITALS (7 sets, daily range): BP systolic 120–127; BP diastolic 57–69; PULSE 68–95; RESP 12–22; TEMP 36.9; O2SAT 92–96; BMI 33.4
--- NOTE | 2019-07-06 17:51 | ED_ITS ---
HPI - Male Genitourinary General: Chief complaint: Urogenital-Male Stated complaint: RIGHT FLANK PAIN Time Seen by Provider: 07/06/19 17:50 Source: patient Mode of arrival: ambulatory Limitations: no limitations History of Present Illness: HPI Narrative: 69-year-old male states he has had diffuse abdominal pain along with right flank pain over the last 2 days. He states he has kidney stones this pain is been severe in nature. He denies any fever. He has had no vomiting or diarrhea. He denies any worsening improving factors. Onset (ago): day(s) Duration: constant Associated symptoms: Deny dysuria Review of Systems Const: Denies: fever(s), chills, body aches or change in appetite Eyes: Denies: blurry vision or eye discomfort ENMT: Denies: throat pain or dental pain Card: Denies: chest pain Resp: Denies: dyspnea GI: Reports: abdominal pain : Denies: dysuria Musc: Denies: neck pain or back pain Skin/Breast: Denies: rash Neuro: Denies: headache(s) Psych: Denies: depression Darius/Lymph: Denies: easy bruising All/Imm: Denies: urticaria PFSH ED PFSH: Social History Smoking and tobacco status: current every day smoker Physical Exam Const: COMMON NORMALS: no acute distress, patient oriented x3 and healthy appearing HENMT: COMMON NORMALS: normocephalic and atraumatic HEAD & SCALP: normocephalic and atraumatic Eye: COMMON NORMALS: Equal, round and reactive pupils present and EOMs intact bilaterally PUPIL: Yes Equal, round and reactive pupils present Neck/C-Spine: COMMON NORMALS: full ROM and supple Chest: COMMONS NORMALS: normal inspection of the chest and normal palpation of entire chest wall Resp: COMMON NORMALS: normal respiratory effort, No retractions, No use of accessory muscles and clear to auscultation bilaterally AUSCULTATION: clear to auscultation bilaterally Cardio: COMMON NORMALS: regular rate, regular rhythm and No murmurs present (Cardio) RATE: regular rate RHYTHM: regular rhythm GI: COMMON NORMALS: Normal to inspection, nondistended, normoactive bowel sounds present, Soft to palpation and no masses PALPATION: Yes Soft to palpation and Yes Tenderness to palpation present (GI) Details: RLQ, LUQ and RUQ Extremity: COMMON NORMALS: normal to inspection and full ROM Neuro: COMMON NORMALS: patient oriented x3, moves all extremities and no focal motor deficits Psych: COMMON NORMALS: mental status grossly normal, Normal thought process present and cooperative THOUGHT PROCESS: Normal thought process present Skin: COMMON NORMALS: no rashes or lesions noted and no wounds GENERAL SKIN EXAM: no rashes or lesions noted Course Vital Signs: Vital signs: Vital Signs Temperature 98.4 F 07/06/19 17:41 Pulse Rate 68 07/06/19 19:59 Respiratory Rate 18 07/06/19 19:59 Blood Pressure 120/57 07/06/19 19:59 Pulse Oximetry 93 07/06/19 19:59 MDM - Male MDM Narrative: Medical decision making narrative: Patient presents here with abdominal pain along with shortness of breath. Patient CT of the abdomen is normal but does have bilateral lower lobe pneumonias. Patient also has a leukocytosis likely from his pneumonia. Will test for coronavirus and patient started on IV antibiotics. Spoke to hospitalist and will admit. Lab Data: Labs: Lab Results 07/06/19 07/06/19 07/06/19 Range/Units 18:45 18:45 18:45 WBC 15.5 H (4.0-10.0) 10^3/ uL RBC 4.58 (4.1-5.3) 10^6/u L Hgb 12.6 (11.7-16.6) g/dL Hct 40.2 L (42.0-52.0) % MCV 87.8 (80-94) fL MCH 27.5 L (28.0-34.0) pg MCHC 31.3 (30.0-36.0) g/dL RDW 15.9 H (12.1-15.1) % Plt Count 394 (130-400) 10^3/c mm MPV 10.0 (7.4-10.4) fL Neut % (Auto) 81.3 % Lymph % (Auto) 6.5 % [place] % (Auto) 9.8 % Eos % (Auto) 0.7 % Baso % (Auto) 0.5 % Neut # (Auto) 12.6 H (1.8-7.7) 10^3/u L Lymph # (Auto) 1.0 (0.8-4.8) 10^3/u L [place] # (Auto) 1.5 H (0.2-0.9) 10^3/u L Eos # (Auto) 0.1 (0.0-0.8) 10^3/u L Baso # (Auto) 0.1 (0.0-0.1) 10^3/u L Nucleated RBC % (a uto) 0 % Nucleated RBCs # 0.0 /100WBC PT 15.70 H (10.5-13.3) SECO NDS INR 1.21 H (0.8-1.2) Sodium 135 L (136-145) mmol/L Potassium 4.4 (3.5-5.1) mmol/L Chloride 101 (98-107) mmol/L Carbon Dioxide 18 L (22-29) mmol/L Anion Gap 20.4 H (5-19) BUN 36 H (8-23) mg/dL Creatinine 1.4 H (0.7-1.2) mg/dL Glucose 112 (65-115) mg/dL Calculated Osmolal ity 278 L (285-295) mOsm/k g Lactate (0.5-2.2) mmol/L Calcium 9.8 (8.5-10.5) mg/dL Total Bilirubin 0.4 (0.15-1.2) mg/dL AST 11 (0-40) U/L ALT 12 (0-41) U/L Alkaline Phosphata se 142 H (40-130) IU/L NT-Pro-B Natriuret Pep (0-125) pg/mL Total Protein 7.4 (6.6-8.7) g/dL Albumin 3.2 L (3.5-5.2) g/dL Globulin 4.2 (1.3-4.6) g/dL Lipase 24 (13-60) U/L Urine Color (Yellow) Urine Appearance (CLEAR) Urine pH (5-7) Ur Specific Gravit y (1.005-1.030) Urine Protein (Negative) Urine Glucose (UA) (Normal) Urine Ketones (Negative) Urine Blood (Negative) Urine Nitrate (Negative) Urine Bilirubin (NEGATIVE) Urine Urobilinogen (Negative) mg/dL Ur Leukocyte Earlene ase (Negative) Urine RBC (0-2) /hpf Urine WBC (0-5) /hpf Ur Squamous Epith Cells (0-5) Urine Bacteria (NONE) 07/06/19 07/06/19 07/06/19 Range/Units 18:45 18:45 21:02 WBC (4.0-10.0) 10^3/ uL RBC (4.1-5.3) 10^6/u L Hgb (11.7-16.6) g/dL Hct (42.0-52.0) % MCV (80-94) fL MCH (28.0-34.0) pg MCHC (30.0-36.0) g/dL RDW (12.1-15.1) % Plt Count (130-400) 10^3/c mm MPV (7.4-10.4) fL Neut % (Auto) % Lymph % (Auto) % [place] % (Auto) % Eos % (Auto) % Baso % (Auto) % Neut # (Auto) (1.8-7.7) 10^3/u L Lymph # (Auto) (0.8-4.8) 10^3/u L [place] # (Auto) (0.2-0.9) 10^3/u L Eos # (Auto) (0.0-0.8) 10^3/u L Baso # (Auto) (0.0-0.1) 10^3/u L Nucleated RBC % (a uto) % Nucleated RBCs # /100WBC PT (10.5-13.3) SECO NDS INR (0.8-1.2) Sodium (136-145) mmol/L Potassium (3.5-5.1) mmol/L Chloride (98-107) mmol/L Carbon Dioxide (22-29) mmol/L Anion Gap (5-19) BUN (8-23) mg/dL Creatinine (0.7-1.2) mg/dL Glucose (65-115) mg/dL Calculated Osmolal ity (285-295) mOsm/k g Lactate 0.9 (0.5-2.2) mmol/L Calcium (8.5-10.5) mg/dL Total Bilirubin (0.15-1.2) mg/dL AST (0-40) U/L ALT (0-41) U/L Alkaline Phosphata se (40-130) IU/L NT-Pro-B Natriuret Pep 143 H (0-125) pg/mL Total Protein (6.6-8.7) g/dL Albumin (3.5-5.2) g/dL Globulin (1.3-4.6) g/dL Lipase (13-60) U/L Urine Color Yellow (Yellow) Urine Appearance Clear (CLEAR) Urine pH 5 (5-7) Ur Specific Gravit y 1.015 (1.005-1.030) Urine Protein Trace (Negative) Urine Glucose (UA) Norm (Normal) Urine Ketones Negative (Negative) Urine Blood Neg (Negative) Urine Nitrate Negative (Negative) Urine Bilirubin Neg (NEGATIVE) Urine Urobilinogen 1 H (Negative) mg/dL Ur Leukocyte Earlene ase Negative (Negative) Urine RBC None (0-2) /hpf Urine WBC 0-4 H (0-5) /hpf Ur Squamous Epith Cells 0-4 H (0-5) Urine Bacteria Trace (NONE) Imaging Data: CXR: Attestation: I personally reviewed and interpreted this imaging study as follows: My impression: right sided pneumonia CT Abd/Pel: Attestation: I personally reviewed and interpreted this imaging study as follows: Radiologist's impression: [place] [address] CT Scan Report Signed Patient: Nghia Giron Unit #: [id number] : [id number] Age/Sex: 69 / M ADM Date: 07/06/19 Loc: ER Room/Bed: Attending Dr: Ordering Provider/Ordering MD: Anne Real MD Date of Service: 07/06/19 Procedure(s): CT abdomen pelvis w con* [id number] Accession Number(s): [id number] Report Number: [id number] PROCEDURE INFORMATION: Exam: CT Abdomen And Pelvis With Contrast Exam date and time: 07/06/2019 6:52 PM Age: 69 years old Clinical indication: Abdominal pain; Localized; Right; Prior surgery; Surgery type: Gb. Appy. ; Patient HX: RT sided abd pain TECHNIQUE: Imaging protocol: Computed tomography of the abdomen and pelvis with intravenous contrast. Radiation optimization: All CT scans at this facility use at least one of these dose optimization techniques: automated exposure control; mA and/or kV adjustment per patient size (includes targeted exams where dose is matched to clinical indication); or iterative reconstruction. Contrast material: OMNI 300; Contrast volume: 95 ml; Contrast route: 20G LAC; COMPARISON: CT angio chest abdomen pelvis 06/20/2019 8:50 PM RADIATION DOSE METRICS: Total DLP: 1097.89 mGy-cm FINDINGS: Lungs: Limited assessment lung bases reveals bilateral lower lobe segmental ground-glass and patchy consolidated alveolar airspace disease of suspected active pneumonitis/pneumonia. Few air bronchograms. No visible associated pleural effusions. Coronary artery disease. Liver: Hepatomegaly. No visible hepatic mass. Gallbladder and bile ducts: Status post cholecystectomy. Pancreas: Pancreas unremarkable. No visible pancreatic ductal ectasia. Spleen: Mild splenomegaly. Adrenals: Normal. No mass. Kidneys and ureters: Kidneys unremarkable. No visible hydronephrosis or perinephric fluid. Stable cortical scarring inferior pole left kidney. Stomach and bowel: Diverticulosis coli without evidence for active diverticulitis. No visible evidence for adynamic or reactive ileus. Appendix: Status post appendectomy. Intraperitoneal space: Unremarkable. No free air. No significant fluid collection. Vasculature: The abdominal aorta is nonaneurysmal but demonstrates moderate arterial sclerotic disease. Mild intramural thrombus. 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 Very mild fusiform aneurysmal dilatation of the left common iliac artery at 16 mm stable. No visible intimal flap or dissection. No visible aneurysm. Accessory renal arteries. Lymph nodes: Unremarkable. No enlarged lymph nodes. Bladder: Unremarkable as visualized. Reproductive: Prostate hypertrophy. Bones/joints: Age-appropriate degenerative disease and degenerative disc disease. No visible acute osseous abnormality. Mild scoliosis. Soft tissues: Unremarkable. CT/CT abdomen pelvis w con* [id number] IMPRESSION: 1. Bilateral lower lobe pneumonitis/pneumonia. 2. No visible evidence of acute or active abdominal or pelvic pathologic process. 3. Numerous nonurgent, nonemergent, chronic, and age related findings as detailed in text above. Discharge Plan Discharge Patient Disposition: Admitted As Inpatient Clinical Impression: Pneumonia Qualifiers: Pneumonia type: due to unspecified organism Laterality: bilateral Lung location: lower lobe of lung Qualified Code(s): J18.9 - Pneumonia, unspecified organism Condition: Stable Referrals: Evan Rock DO [Primary Care Provider] - Coding Level of Care Code ED Apprentice Jockey for Chg Fwd Exam Comprehensive
[2019-07-06] MEDS: sodium chloride 0.9% 1,000 ML 999 ML IV (18:12)
[2019-07-06] MEDS: morphine 4 mg/mL SDV 1 mL IVP (18:13)
[2019-07-06] MEDS: ondansetron 2 mg/ML SDV 2 mL 4 MG IVP (18:16)
[2019-07-06 19:01] LABS: Basophils # 0.1 10^3/uL (0.0-0.1); Basophils % 0.5 %; Eosinophils # 0.1 10^3/uL (0.0-0.8); Eosinophils % 0.7 %; Hematocrit 40.2 % (42.0-52.0); Hemoglobin 12.6 g/dL (11.7-16.6); INR 1.21 (0.8-1.2); Lymphocytes % 6.5 %; Mean Corpuscular HGB Conc 31.3 g/dL (30.0-36.0); Mean Corpuscular Hemoglobin 27.5 pg (28.0-34.0); Mean Corpuscular Volume 87.8 fL (80-94); Monocytes # 1.5 10^3/uL (0.2-0.9); Monocytes % 9.8 %; Neutrophils # 12.6 10^3/uL (1.8-7.7); Neutrophils % 81.3 %; Nucleated Red Blood Cells % 0 %; Platelet Count 394 10^3/cmm (130-400); Red Blood Count 4.58 10^6/uL (4.1-5.3); Red Cell Distribution Width 15.9 % (12.1-15.1); White Blood Count 15.5 10^3/uL (4.0-10.0)
[2019-07-06 19:06] LABS: Alanine Aminotransferase 12 U/L (0-41); Albumin Level 3.2 g/dL (3.5-5.2); Alkaline Phosphatase 142 IU/L (40-130); Anion Gap 20.4 (5-19); Aspartate Amino Transferase 11 U/L (0-40); Blood Urea Nitrogen 36 mg/dL (8-23); Calcium 9.8 mg/dL (8.5-10.5); Carbon Dioxide 18 mmol/L (22-29); Chloride 101 mmol/L (98-107); Globulin 4.2 g/dL (1.3-4.6); Glucose 112 mg/dL (65-115); Lactate (Lactic Acid level) 0.9 mmol/L (0.5-2.2); Lipase 24 U/L (13-60); Osmolality Calculated 278 mOsm/kg (285-295); Potassium 4.4 mmol/L (3.5-5.1); Sodium 135 mmol/L (136-145); Total Bilirubin 0.4 mg/dL (0.15-1.2); Total Protein 7.4 g/dL (6.6-8.7)
[2019-07-06] MEDS: iohexol 300 mg/mL 100 mL Btl IV (19:16)
[2019-07-06] MEDS: HYDROmorphone 1 mg/mL INJ 1 mL IVP (19:22)
--- NOTE | 2019-07-06 20:19 | XR_ITS ---
WS: [id number] PORTABLE CHEST HISTORY: sob COMPARISON: 06/20/2019 New interstitial thickening in the central RIGHT lung and at the LEFT lung base. Otherwise lungs are clear. No pleural effusion or pneumothorax. Cardiac size: Normal. Mediastinum/Aorta: Normal mediastinum. No osseous abnormality seen. XR/XR chest 1V portable [id number] IMPRESSION: RIGHT upper lobe pneumonia with pneumonitis at the LEFT lung base.
[2019-07-06] MEDS: cefTRIAXone 1,000 MG in sodium chloride 0.9% (plus) 50 ML 100 MG IV (20:48)
[2019-07-06 21:12] LABS: NT Pro B Type Natriuretic Pept 143 pg/mL (0-125)
[2019-07-06] MEDS: azithromycin 500 MG in sodium chloride 0.9% 250 ML 250 MG IV (21:38)
[2019-07-06 21:40] LABS: Add Urine Microscopic? YES; Bilirubin Urine Neg (NEGATIVE); Blood Urine Neg (Negative); Glucose Urine UA Norm (Normal); Ketones Urine Negative (Negative); Leukocyte Esterase Urine Negative (Negative); Nitrate Urine Negative (Negative); Protein Urine Trace (Negative); Specific Gravity, Urine 1.015 (1.005-1.030); Urine Appearance Clear (CLEAR); Urine Color Yellow (Yellow); Urobilinogen Urine 1 mg/dL (Negative); pH Urine 5 (5-7)
[2019-07-06 21:41] LABS: Add Urine Culture? No; Bacteria Urine TRACE; Squamous Epithelial Cell Urine 0-4 (0-5); WBC Urine 0-4 /hpf (0-5)
--- NOTE | 2019-07-06 23:58 | P.HP_ITS ---
Providers/Chief Complaint Admitting Physician: David Arellano Primary Care Provider: Evan Rock DO Chief Complaint: PNEUMONIA; ABD PAIN History of Present Illness Nghia Giron is a 69 year old male with past medical history of diabetes, hypertension, BPH, peripheral arterial disease, dyslipidemia who presented to emergency room with complaints of right flank pain and cough. The patient was found to have mild hypoxia in the emergency room. Blood count revealed leukoc ytosis. CT of the abdomen was negative for any intra-abdominal acute findings but showed that he had bibasilar infiltrates. The patient has been having these symptoms for several days. Worsening and currently pretty severe. The patient also reports generalized aches in the muscles. Reports fever and chills. Reports decreased appetite. No vomiting or diarrhea. He denies any travel or sick contacts. The patient denies any similar episodes in the past. The patient is currently on isolation. Coronavirus 19 testing is done and the results are pending. He was given azithromycin and Rocephin in the emergency room. Currently feels a little better. He is a smoker. Last cigarette was yesterday. Denies alcohol. Review of Systems General: Reports: 10 or more systems reviewed and unremarkable except in HPI and below Medications/Allergies Home Medications Medication Instructions Recorded Confirmed Last Taken Type cholecalciferol (vitamin D3) 50 mcg PO DAILY 06/20/19 07/06/19 07/06/19 History gemfibrozil 600 mg PO BID 06/20/19 07/06/19 07/06/19 History glipizide 5 mg PO BID 06/20/19 07/06/19 07/06/19 History lisinopril 10 mg PO DAILY 06/20/19 07/06/19 07/06/19 History meclizine 25 mg PO TID PRN 06/20/19 07/06/19 Unknown History metformin 1,000 mg PO BID 06/20/19 07/06/19 07/06/19 History pentoxifylline 400 mg PO BID 06/20/19 07/06/19 07/06/19 History tamsulosin 0.4 mg PO DAILY 06/20/19 07/06/19 07/05/19 History Allergies Allergy/AdvReac Type Severity Reaction Status Date / Time Yoowmsk-Ikz-Lwu Reductase Allergy ALGY-Rash Verified 07/06/19 17:49 Inhibitor PFSH Acute PFSH: Social History Smoking and tobacco status: current every day smoker Vitals/I&O/Wt Last Vital Signs Temp 98.4 F 07/06/19 17:41 Pulse 68 07/06/19 22:36 Resp 18 07/06/19 22:36 BP 123/69 07/06/19 22:36 Pulse Ox 96 07/06/19 22:36 07/06/19 07/06/19 07/07/19 14:59 22:59 06:59 Intake Total 1050 / 1050 Balance 1050 / 1050 Weight last 48 hrs Weight 99.79 kg Physical Exam Narrative: EXAM NARRATIVE: The patient is awake alert and oriented x3. Mild distress. Mood and affect are appropriate. Responses are adequate. Skin is warm and dry. Moist mucous membranes. Eyes Rah, extraocular muscles intact. Neck supple. No JVD Normal speech. No focal deficits. Lungs bibasilar crackles are present. No respiratory distress with supplemental oxygen. Heart S1, S2, regular Abdomen soft, nontender, bowel sounds are present Extremities trace pedal edema. No cyanosis no calf tenderness bilaterally. Data : 07/06/19 18:45 07/06/19 18:45 Other Labs: Laboratory Results WBC 15.5 10^3/uL (4.0-10.0) H 07/06/19 18:45 RBC 4.58 10^6/uL (4.1-5.3) 07/06/19 18:45 Hgb 12.6 g/dL (11.7-16.6) 07/06/19 18:45 Hct 40.2 % (42.0-52.0) L 07/06/19 18:45 MCV 87.8 fL (80-94) 07/06/19 18:45 MCH 27.5 pg (28.0-34.0) L 07/06/19 18:45 MCHC 31.3 g/dL (30.0-36.0) 07/06/19 18:45 RDW 15.9 % (12.1-15.1) H 07/06/19 18:45 Plt Count 394 10^3/cmm (130-400) 07/06/19 18:45 MPV 10.0 fL (7.4-10.4) 07/06/19 18:45 Neut % (Auto) 81.3 % 07/06/19 18:45 Lymph % (Auto) 6.5 % 07/06/19 18:45 [place] % (Auto) 9.8 % 07/06/19 18:45 Eos % (Auto) 0.7 % 07/06/19 18:45 Baso % (Auto) 0.5 % 07/06/19 18:45 Neut # (Auto) 12.6 10^3/uL (1.8-7.7) H 07/06/19 18:45 Lymph # (Auto) 1.0 10^3/uL (0.8-4.8) 07/06/19 18:45 [place] # (Auto) 1.5 10^3/uL (0.2-0.9) H 07/06/19 18:45 Eos # (Auto) 0.1 10^3/uL (0.0-0.8) 07/06/19 18:45 Baso # (Auto) 0.1 10^3/uL (0.0-0.1) 07/06/19 18:45 Nucleated RBC % (auto) 0 % 07/06/19 18:45 Nucleated RBCs # 0.0 /100WBC 07/06/19 18:45 PT 15.70 SECONDS (10.5-13.3) H 07/06/19 18:45 INR 1.21 (0.8-1.2) H 07/06/19 18:45 Sodium 135 mmol/L (136-145) L 07/06/19 18:45 Potassium 4.4 mmol/L (3.5-5.1) 07/06/19 18:45 Chloride 101 mmol/L (98-107) 07/06/19 18:45 Carbon Dioxide 18 mmol/L (22-29) L 07/06/19 18:45 Anion Gap 20.4 (5-19) H 07/06/19 18:45 BUN 36 mg/dL (8-23) H 07/06/19 18:45 Creatinine 1.4 mg/dL (0.7-1.2) H 07/06/19 18:45 Glucose 112 mg/dL (65-115) 07/06/19 18:45 Calculated Osmolality 278 mOsm/kg (285-295) L 07/06/19 18:45 Lactate 0.9 mmol/L (0.5-2.2) 07/06/19 18:45 Calcium 9.8 mg/dL (8.5-10.5) 07/06/19 18:45 Total Bilirubin 0.4 mg/dL (0.15-1.2) 07/06/19 18:45 AST 11 U/L (0-40) 07/06/19 18:45 ALT 12 U/L (0-41) 07/06/19 18:45 Alkaline Phosphatase 142 IU/L (40-130) H 07/06/19 18:45 NT-Pro-B Natriuret Pep 143 pg/mL (0-125) H 07/06/19 18:45 Total Protein 7.4 g/dL (6.6-8.7) 07/06/19 18:45 Albumin 3.2 g/dL (3.5-5.2) L 07/06/19 18:45 Globulin 4.2 g/dL (1.3-4.6) 07/06/19 18:45 Lipase 24 U/L (13-60) 07/06/19 18:45 Urine Color Yellow (Yellow) 07/06/19 21:02 Urine Appearance Clear (CLEAR) 07/06/19 21:02 Urine pH 5 (5-7) 07/06/19 21:02 Ur Specific [place] 1.015 (1.005-1.030) 07/06/19 21:02 Urine Protein Trace (Negative) 07/06/19 21:02 Urine Glucose (UA) Norm (Normal) 07/06/19 21:02 Urine Ketones Negative (Negative) 07/06/19 21: Urine Blood Neg (Negative) 07/06/19 21:02 Urine Nitrate Negative (Negative) 07/06/19 21: Urine Bilirubin Neg (NEGATIVE) 07/06/19 21: Urine Urobilinogen 1 mg/dL (Negative) H 07/06/19 21:02 Ur Leukocyte Esterase Negative (Negative) 07/06/19 21:02 Urine RBC None /hpf (0-2) 07/06/19 21:02 Urine WBC 0-4 /hpf (0-5) H 07/06/19 21:02 Ur Squamous Epith Cells 0-4 (0-5) H 07/06/19 21:02 Urine Bacteria Trace (NONE) 07/06/19 21:02 Impressions Abdomen/Pelvis CT 07/06/19 17:50 IMPRESSION: 1. Bilateral lower lobe pneumonitis/pneumonia. 2. No visible evidence of acute or active abdominal or pelvic pathologic process. 3. Numerous nonurgent, nonemergent, chronic, and age related findings as detailed in text above. Radiation Dose CTDIVOL = (mGy): DLP = 1097.89 (mGy-cm) Micro: Microbiology 07/06/19 21:01 Blood Culture - Preliminary Blood SPECIMEN COLLECTED 07/06/19 18:45 Blood Culture - Preliminary Blood SPECIMEN COLLECTED A&P Additional A&P Information This is a 69-year-old male with past medical history of diabetes, hypertension, peripheral arterial disease, BPH, dyslipidemia, tobacco abuse who is presenting with shortness of breath, cough, abdominal pain, fever and chills. The patient is found to have bibasilar pneumonia.COVID testing is pending. He received azithromycin and Rocephin. Ordering EKG to rule out any arrhythmias since he is on azithromycin. Blood cultures and sputum cultures are ordered. We will hydrate him gently. Please reassess hydration status in the morning and order more fluids if necessary. Diabetes. I will hold his home medications and start him on sliding scale insulin. Hypertension. Currently well controlled. PRN hydralazine. DVT prophylaxis. Lovenox. History of BPH continue Flomax. Accidental findings on abdominal CT. Please discussed with the patient prior to discharge when he is more stable. Additional testing might be necessary in outpatient settings. Tobacco abuse. Counseling is provided. He decided to quit. Please reinforce at discharge. CODE STATUS. The patient wants to be full code. The plan of care was discussed with the patient. He verbalized understanding and agreement. Attestations Medical Necessity Statement*: Based on my assessment of his current condition he will require more than 2 midnights in the hospital. Coding Level of Care Code Acute Supervisor Coating for Devorah Hou
[2019-07-07] VITALS (23 sets, daily range): BP systolic 115–140; BP diastolic 50–74; PULSE 57–106; RESP 18–29; TEMP 36.6–37.9; O2SAT 91–96
[2019-07-07 00:53] LABS: Thyroid Stimulating Hormone 0.76 uIU/mL (0.27-4.20)
[2019-07-07] MEDS: HYDROcodone-acetaminophen 5-325 mg Tablet 1 TAB PO ×5 (00:59→19:27)
[2019-07-07] MEDS: enoxaparin 40 mg/0.4 mL Syringe SUBCUT ×2 (00:59→22:25)
[2019-07-07] MEDS: lactated ringers 1,000 ML 100 ML IV (01:00)
[2019-07-07] MEDS: albuterol 8 gm MDI 2 PUFF INHALATION ×2 (01:32→08:59)
[2019-07-07 05:34] LABS: Procalcitonin 0.39 ng/mL (0-0.5)
[2019-07-07 05:58] LABS: Anion Gap 20.1 (5-19); Blood Urea Nitrogen 28 mg/dL (8-23); Calcium 10.8 mg/dL (8.5-10.5); Carbon Dioxide 19 mmol/L (22-29); Chloride 103 mmol/L (98-107); Glucose 119 mg/dL (65-115); Osmolality Calculated 284 mOsm/kg (285-295); Phosphorus 4.3 mg/dL (2.5-4.5); Potassium 4.1 mmol/L (3.5-5.1); Sodium 138 mmol/L (136-145)
[2019-07-07 06:01] LABS: Estmated Average Glucose 186; Hemoglobin A1C 8.1 % (4.0-6.0)
[2019-07-07 06:08] LABS: Basophils # 0.1 10^3/uL (0.0-0.1); Basophils % 0.6 %; Eosinophils # 0.2 10^3/uL (0.0-0.8); Eosinophils % 1.2 %; Hematocrit 38.1 % (42.0-52.0); Hemoglobin 11.8 g/dL (11.7-16.6); Lymphocytes # 1.1 10^3/uL (0.8-4.8); Lymphocytes % 7.8 %; Mean Corpuscular Hemoglobin 27.3 pg (28.0-34.0); Mean Corpuscular Volume 88.2 fL (80-94); Mean Platelet Volume 10.7 fL (7.4-10.4); Monocytes # 1.4 10^3/uL (0.2-0.9); Monocytes % 9.4 %; Neutrophils # 11.5 10^3/uL (1.8-7.7); Neutrophils % 79.9 %; Nucleated Red Blood Cells % 0 %; Platelet Count 374 10^3/cmm (130-400); Red Blood Count 4.32 10^6/uL (4.1-5.3); Red Cell Distribution Width 15.9 % (12.1-15.1); White Blood Count 14.4 10^3/uL (4.0-10.0)
[2019-07-07 08:07] LABS: Glucose Point of Care 113 mg/dL (70-110)
[2019-07-07] MEDS: gemfibrozil 600 mg Tablet PO ×2 (08:52→17:29)
[2019-07-07] MEDS: tamsulosin 0.4 mg Capsule PO (08:52)
[2019-07-07] MEDS: lisinopril 10 mg Tablet PO (08:52)
[2019-07-07 08:54] LABS: Procalcitonin 0.42 ng/mL (0-0.5)
--- NOTE | 2019-07-07 10:00 | ECG_ITS ---
Measurements Intervals [place] Rate: 73 P: 61 WV: 189 QRS: -9 QRSD: 87 T: 40 QT: 380 QTc: 421 SINUS RHYTHM WITH SINUS ARRHYTHMIA POSSIBLE INFERIOR MYOCARDIAL INFARCTION [30 ms Q WAVE IN II/aVF], PROBABLY OLD INTERPRETATION BASED ON A DEFAULT AGE OF 40 YEARS No previous ECG available for comparison Electronically Signed On 07-07-2019 13:08:24 CDT by Luigi Moore M.D. [email or web address]
[2019-07-07 11:59] LABS: Influenza A by IFA Negative (Negative)
[2019-07-07 12:00] LABS: Influenza B by IFA Negative (Negative)
[2019-07-07 12:35] LABS: Glucose Point of Care 146 mg/dL (70-110)
--- NOTE | 2019-07-07 13:44 | P.PN_ITS ---
Subjective Subjective: Interval history: This morning patient states that he feels a bit better, minimal wheezing, stated that he has had fevers, cough, shortness of breath, wheezing for the past week, states that he was diagnosed with COPD when he lived in [place], he continues to smoke, quit a few days ago, his COVID-19 testing is pending, simply isolation precautions Vitals/I&O/Wt Last Vital Signs Temp 98.0 F 07/07/19 08:00 Pulse 58 L 07/07/19 10:00 Resp 20 H 07/07/19 10:00 BP 115/56 07/07/19 10:00 Pulse Ox 93 07/07/19 10:00 07/06/19 07/07/19 07/07/19 22:59 06:59 14:59 Intake Total 1050 / 1050 240 / 1290 354 / 354 Output Total 200 / 200 250 / 250 Balance 1050 / 1050 40 / 1090 104 / 104 Weight last 48 hrs Weight 90.537 kg Weight 99.79 kg Physical Exam Const: COMMON NORMALS: no acute distress and patient oriented x3 HENMT: COMMON NORMALS: normocephalic HEAD & SCALP: normocephalic Neck/C-Spine: COMMON NORMALS: no JVD Resp: COMMON NORMALS: normal respiratory effort, No retractions and No use of accessory muscles AUSCULTATION: wheezes Cardio: COMMON NORMALS: no JVD, regular rate, regular rhythm, S1 normal heart sound present and S2 normal heart sound present RATE: regular rate RHYTHM: regular rhythm HEART SOUNDS: S1 normal heart sound present and S2 normal heart sound present GI: COMMON NORMALS: Normal to inspection, nondistended, normoactive bowel sounds present, Soft to palpation, non-tender, No hepatosplenomegaly present, no masses and no bruits PALPATION: Yes Soft to palpation and Yes No hepatosplenomegaly present Extremity: COMMON NORMALS: capillary refill normal, no clubbing, cyanosis or edema, no calf tenderness and no pedal edema Neuro: COMMON NORMALS: patient oriented x3 Psych: COMMON NORMALS: mental status grossly normal Data : 07/07/19 04:45 07/07/19 04:45 Micro: Microbiology 07/06/19 21:01 Blood Culture - Preliminary Blood SPECIMEN COLLECTED 07/06/19 18:45 Blood Culture - Preliminary Blood SPECIMEN COLLECTED A&P Assessment and plan (1) Acute respiratory failure with hypoxia: -Secondary to bilateral lobe pneumonia, COPD exacerbation -But given his CT findings, his presentation, I am concerned about the possibility of COVID-19, which is pending Plan: -Requires close monitoring in ICU -Follow blood cultures, respiratory cultures, urine bacterial antigens -Continue azithromycin and Rocephin -Continue oxygen therapy -DuoNeb treatments -IV fluids -I am holding off on steroids, until COVID-19 testing is back, once negative, will give steroid Status: Acute (2) COPD (chronic obstructive pulmonary disease): Status: Acute (3) Pneumonia of both lower lobes: Status: Acute (4) Type 2 diabetes mellitus: -A1c 8.1 Status: Acute (5) BPH (benign prostatic hyperplasia): Status: Acute (6) Hypertension: Status: Acute Additional A&P Information Full code Lovenox for DVT prophylaxis Attestations Medical Necessity Statement*: Patient requires continued hospitalization for acute respiratory failure with hypoxia Coding Level of Care Code Acute Registered Dietitian for [facility] Diagnoses Acute respiratory failure with hypoxia J96.01 COPD (chronic obstructive pulmonary disease) J44.9 Pneumonia of both lower lobes J18.9 Type 2 diabetes mellitus E11.9 BPH (benign prostatic hyperplasia) N40.0 Hypertension I10
[2019-07-07 14:19] LABS: Coronavirus Lab Test PTC NOT DETECTED
--- NOTE | 2019-07-07 14:22 | CTR_ITS ---
PROCEDURE INFORMATION: Exam: CT Chest With Contrast Exam date and time: 07/07/2019 7:25 PM Age: 69 years old Clinical indication: Condition or disease; Lung condition and disease; Pneumonia; Additional info: Pna TECHNIQUE: Imaging protocol: Computed tomography of the chest with intravenous contrast. Radiation optimization: All CT scans at this facility use at least one of these dose optimization techniques: automated exposure control; mA and/or kV adjustment per patient size (includes targeted exams where dose is matched to clinical indication); or iterative reconstruction. Contrast material: OMNI 300; Contrast volume: 95 ml; Contrast route: 20G; COMPARISON: CR XR chest 1V portable [id number] 07/06/2019 8:25 PM RADIATION DOSE METRICS: Total DLP: 746.64 mGy-cm FINDINGS: Lungs: Moderate bilateral lower lobe pneumonia with air bronchograms with bilateral posterior segment upper lobe pneumonia. Pleural space: Unremarkable. No pneumothorax. No pleural effusion. Heart: Severe calcified coronary artery disease. Aorta: Unremarkable. No aortic aneurysm. Great vessels off aortic arch: Calcification of the thoracic aorta and/or great vessels consistent with atherosclerotic vessel disease. Lymph nodes: 2.3 x 1.9 x 2.7 cm right subcarinal lymph node with central low density suggesting possible reactive lymph node versus neoplastic lymph node versus bronchogenic cyst partially surrounded by small veins. Bones/joints: Severe thoracic spondylosis. Soft tissues: Unremarkable. Other findings: Examination is limited secondary to motion artifact. CT/CT chest w con* [id number] IMPRESSION: 1. Moderate bilateral lower lobe pneumonia with air bronchograms with bilateral posterior segment upper lobe pneumonia. 2. 2.3 x 1.9 x 2.7 cm right subcarinal lymph node with central low density suggesting possible reactive lymph node versus neoplastic lymph node versus bronchogenic cyst partially surrounded by small veins. 3. Severe calcified coronary artery disease. Radiation Dose CTDIVOL = (mGy): DLP = 746.64 (mGy-cm)
[2019-07-07] MEDS: ipratropium-albuterol 3 mL Neb INHALATION ×2 (15:52→21:14)
[2019-07-07 16:48] LABS: Glucose Point of Care 125 mg/dL (70-110)
[2019-07-07 16:58] LABS: Glucose Point of Care 128 mg/dL (70-110)
[2019-07-07] MEDS: predniSONE 20 mg Tablet 40 MG PO (17:29)
[2019-07-07] MEDS: iohexol 300 mg/mL 100 mL Btl IV (19:59)
[2019-07-07] MEDS: azithromycin 500 MG in sodium chloride 0.9% 250 ML 250 MG IV (20:30)
[2019-07-07 22:21] LABS: Glucose Point of Care 202 mg/dL (70-110)
[2019-07-08] VITALS (16 sets, daily range): BP systolic 119–144; BP diastolic 52–64; PULSE 52–71; RESP 14–20; TEMP 36.4–36.8; O2SAT 90–95
[2019-07-08] MEDS: ipratropium-albuterol 3 mL Neb INHALATION ×4 (01:07→11:28)
[2019-07-08 06:14] LABS: Basophils % 0.2 %; Eosinophils % 0.1 %; Hemoglobin 11.7 g/dL (11.7-16.6); Lymphocytes # 0.7 10^3/uL (0.8-4.8); Lymphocytes % 5.7 %; Mean Corpuscular HGB Conc 31.6 g/dL (30.0-36.0); Mean Corpuscular Volume 88.5 fL (80-94); Mean Platelet Volume 9.8 fL (7.4-10.4); Monocytes # 0.6 10^3/uL (0.2-0.9); Monocytes % 4.9 %; Neutrophils % 86.8 %; Nucleated Red Blood Cells % 0 %; Platelet Count 346 10^3/cmm (130-400); Red Blood Count 4.18 10^6/uL (4.1-5.3); Red Cell Distribution Width 15.9 % (12.1-15.1); White Blood Count 11.6 10^3/uL (4.0-10.0)
[2019-07-08 06:38] LABS: Alanine Aminotransferase 8 U/L (0-41); Alkaline Phosphatase 136 IU/L (40-130); Anion Gap 19.6 (5-19); Aspartate Amino Transferase 8 U/L (0-40); Blood Urea Nitrogen 37 mg/dL (8-23); Carbon Dioxide 19 mmol/L (22-29); Chloride 99 mmol/L (98-107); Globulin 4.6 g/dL (1.3-4.6); Glucose 209 mg/dL (65-115); Magnesium 2.1 mg/dL (1.7-2.3); Osmolality Calculated 280 mOsm/kg (285-295); Phosphorus 4.8 mg/dL (2.5-4.5); Potassium 4.6 mmol/L (3.5-5.1); Sodium 133 mmol/L (136-145); Total Bilirubin 0.3 mg/dL (0.15-1.2); Total Protein 7.6 g/dL (6.6-8.7)
[2019-07-08 06:50] LABS: Glucose Point of Care 216 mg/dL (70-110)
[2019-07-08] MEDS: gemfibrozil 600 mg Tablet PO (07:12)
[2019-07-08] MEDS: lisinopril 10 mg Tablet PO (07:13)
[2019-07-08] MEDS: tamsulosin 0.4 mg Capsule PO (07:13)
[2019-07-08] MEDS: predniSONE 20 mg Tablet 40 MG PO (07:13)
[2019-07-08 10:52] LABS: Glucose Point of Care 234 mg/dL (70-110)
--- NOTE | 2019-07-08 13:52 | PC.RESP ---
Smoking Cessation and Pulmonary Rehab information to patient with a schedule of classes.
--- NOTE | 2019-07-08 14:18 | PM.DCS ---
Discharge Providers Date of Admission: 07/06/19 22:05 Date of Discharge: July 08, 2019 Attending Provider at Admission: David Arellano Attending Provider at Discharge: Rogelio Davis MD Primary Care Provider: Evan Rock DO Diagnoses at Discharge Discharge Diagnosis (1) Acute respiratory failure with hypoxia: Status: Acute (2) COPD (chronic obstructive pulmonary disease): Status: Acute (3) Pneumonia of both lower lobes: Status: Acute (4) Type 2 diabetes mellitus: Status: Acute (5) BPH (benign prostatic hyperplasia): Status: Acute (6) Hypertension: Status: Acute Reason for Visit Reason for Visit: Reason For Visit: PNEUMONIA; ABD PAIN Hospital Course Discharge Summary: Nghia Giron is a 69 year old male with past medical history of diabetes, hypertension, BPH, peripheral arterial disease, dyslipidemia who presented to emergency room with complaints of right flank pain and cough. The patient was found to have mild hypoxia in the emergency room. Blood count revealed leukocytosis. CT of the abdomen was negative for any intra-abdominal acute findings but showed that he had bibasilar infiltrates. The patient has been having these symptoms for several days. Worsening and currently pretty severe. The patient also reports generalized aches in the muscles, fevers and chills. COVID-19 was tested and was negative. He was started on IV antibiotics for community-acquired pneumonia. CT chest was done which showed which showed bibasilar pneumonia. He responded well to the treatment and was saturating well on room air on the day of discharge. Home O2 evaluation was done. It is thought his back pain is most likely because of severe bouts of cough. He has been started on cough suppressants. Patient is been discharged hemodynamically stable condition to follow-up with his primary care physician in 7 to 10 days with advised to complete antibiotic course of overall 7 days. Physical Exam Narrative: EXAM NARRATIVE: The patient is awake alert and oriented x3. Mood and affect are appropriate. Responses are adequate. Skin is warm and dry. Moist mucous membranes. Eyes Rah, extraocular muscles intact. Neck supple. No JVD Normal speech. No focal deficits. Lungs: No respiratory distress. Normal vesicular breath sounds bilaterally, no added sounds. Heart S1, S2, regular Abdomen soft, nontender, bowel sounds are present Extremities trace pedal edema. No cyanosis no calf tenderness bilaterally. Discharge Data Data Completed and Pending: Completed Studies During Hospitalization Category Date Time Status CT abdomen pelvis w con* [id number] Urge nt Cat Scan 07/06/19 17:[address] chest w con* [id number] Stat Cat Scan 07/07/19 14:22 Completed XR chest 1V [place] [id number] Stat Exams 07/06/19 20:19 Completed Pending at discharge Category Date Time Status Blood Culture Sta t Lab 07/06/19 21:01 Results Blood Culture Sta t Lab 07/08/19 14:04 Ordered Complete Blood Co unt w/Auto AM LABS Lab 07/09/19 04:00 Ordered Comprehensive Met abolic Panel AM LA BS Lab 07/09/19 04:00 Ordered Comprehensive Met abolic Panel AM LA BS Lab 07/10/19 04:00 Ordered Sputum Culture Ro utine Lab 07/07/19 04:30 Results Labs from last 24 hours 07/08/19 07/08/19 07/08/19 10:34 06:40 05:56 WBC 11.6 H RBC 4.18 Hgb 11.7 Hct 37.0 L MCV 88.5 MCH 28.0 MCHC 31.6 RDW 15.9 H Plt Count 346 MPV 9.8 Neut % (Auto) 86.8 Lymph % (Auto) 5.7 [place] % (Auto) 4.9 Eos % (Auto) 0.1 Baso % (Auto) 0.2 Neut # (Auto) 10.0 H Lymph # (Auto) 0.7 L [place] # (Auto) 0.6 Eos # (Auto) 0.0 Baso # (Auto) 0.0 Nucleated RBC % (a uto) 0 Nucleated RBCs # 0.0 Sodium Potassium Chloride Carbon Dioxide Anion Gap BUN Creatinine Glucose POC Glucose 234 216 Calculated Osmolal ity Calcium Phosphorus Magnesium Total Bilirubin AST ALT Alkaline Phosphata se Total Protein Albumin Globulin Nasal/Oral COVID-1 9 PCR 07/08/19 07/07/19 07/07/19 05:56 22:19 16:39 WBC RBC Hgb Hct MCV MCH MCHC RDW Plt Count MPV Neut % (Auto) Lymph % (Auto) [place] % (Auto) Eos % (Auto) Baso % (Auto) Neut # (Auto) Lymph # (Auto) [place] # (Auto) Eos # (Auto) Baso # (Auto) Nucleated RBC % (a uto) Nucleated RBCs # Sodium 133 L Potassium 4.6 Chloride 99 Carbon Dioxide 19 L Anion Gap 19.6 H BUN 37 H Creatinine 1.0 Glucose 209 H POC Glucose 202 125 Calculated Osmolal ity 280 L Calcium 11.0 H Phosphorus 4.8 H Magnesium 2.1 Total Bilirubin 0.3 AST 8 ALT 8 Alkaline Phosphata se 136 H Total Protein 7.6 Albumin 3.0 L Globulin 4.6 Nasal/Oral COVID-1 9 PCR 07/07/19 07/06/19 07:43 21:01 WBC RBC Hgb Hct MCV MCH MCHC RDW Plt Count MPV Neut % (Auto) Lymph % (Auto) [place] % (Auto) Eos % (Auto) Baso % (Auto) Neut # (Auto) Lymph # (Auto) [place] # (Auto) Eos # (Auto) Baso # (Auto) Nucleated RBC % (a uto) Nucleated RBCs # Sodium Potassium Chloride Carbon Dioxide Anion Gap BUN Creatinine Glucose POC Glucose 128 Calculated Osmolal ity Calcium Phosphorus Magnesium Total Bilirubin AST ALT Alkaline Phosphata se Total Protein Albumin Globulin Nasal/Oral COVID-1 9 PCR Not detected Vitals: Last Vital Signs Temp 98.3 F 07/08/19 11:07 Pulse 59 L 07/08/19 11:37 Resp 18 07/08/19 11:37 BP 144/64 07/08/19 11:07 Pulse Ox 93 07/08/19 11:37 Discharge Plan Discharge Patient Disposition: Home, Self-Care Condition: Stable Prescriptions: New prednisone 20 mg Tablet 40 mg PO DAILY Qty: 5 RF: 0 levofloxacin 750 mg tablet 750 mg PO DAILY 5 Days Qty: 5 RF: 0 tramadol 50 mg tablet 50 mg PO Q12H PRN (Reason: pain) Qty: 10 RF: 0 Tessalon Perles 100 mg capsule 100 mg PO BID PRN (Reason: cough) Qty: 14 RF: 0 Advair Diskus 100-50 mcg/dose blister with device 1 inh INHALATION BID Qty: 60 RF: 0 Continued pentoxifylline 400 mg Tablet Extended Release 400 mg PO BID RF: 0 tamsulosin 0.4 mg capsule 0.4 mg PO DAILY RF: 0 gemfibrozil 600 mg tablet 600 mg PO BID RF: 0 metformin 1,000 mg tablet 1,000 mg PO BID RF: 0 lisinopril 10 mg Tablet 10 mg PO DAILY RF: 0 glipizide 5 mg tablet 5 mg PO BID RF: 0 meclizine 25 mg Tablet,Chewable 25 mg PO TID PRN (Reason: NAUSEA/VOMITING) RF: 0 cholecalciferol (vitamin D3) 50 mcg (2,000 unit) capsule 50 mcg PO DAILY RF: 0 Discharge Orders: Discharge Order (Routine); Ordered 07/08/19 Ordered By: Rogelio Davis Referrals: Zane Lorenz [Referring] - 7-10 days Discharge Diet: Cardiac and Diabetic Discharge Activity: Resume usual activity Patient Instructions: Type 2 Diabetes, Diabetes and Diet, Prednisone (By mouth), Tramadol (By mouth), Levofloxacin (By mouth), Hypertension, Viral Pneumonia (DC), Heart Healthy Diet (DC), Chronic Obstructive Pulmonary Disease (DC), COPD Stoplight Activity Restrictions/Additional Instructions: Please follow-up with your primary care provider within next 7 to 10 days. Please take levofloxacin for 5 more days to finish a 7-day course. Discharge Attestations Time Spent in Discharge Care*: greater than 30 min Specific Discharge Activities: Specific discharge activities: educating patient, discussing with showcase maker/social workers/dc planners, documenting/other paperwork and evaluating patient/reviewing data Status at Discharge: Cognitive status at discharge: cognitively intact, Behavioral status at discharge: cooperative, Functional status at discharge: independent ambulation Overall status at discharge: patient is back to baseline Quality Metrics Clinical Quality Measures During this hospital stay, did patient experience: None Coding Level of Care Code Acute Jack Machine Operator for Devorah Hou Diagnoses Acute respiratory failure with hypoxia J96.01 COPD (chronic obstructive pulmonary disease) J44.9 Pneumonia of both lower lobes J18.9 Type 2 diabetes mellitus E11.9 BPH (benign prostatic hyperplasia) N40.0 Hypertension I10
[2019-07-08 14:45] LABS: Glucose Point of Care 311 mg/dL (70-110)
[2019-07-08 16:52] LABS: Glucose Point of Care 286 mg/dL (70-110)
== END 2019-07-08 17:05 | disposition home or self-care (01) | DRG 193 ==
LOC: ER 22:07 → ICU 22:07 → MEDSURG 07-07 19:45
PROVIDERS: Emergency Medicine; Family Medicine; Admitting Provider Internal Medicine; Family Provider Emergency Medicine Emergency Medical Services; PCP Emergency Medicine Emergency Medical Services; Visit Provider Student in an Organized Health Care Education/Training Program
DX: J18.9 Pneumonia, unspecified organism (principal); J96.01 Acute respiratory failure with hypoxia; J44.0 Chronic obstructive pulmonary disease with (acute) lower respiratory infection; J44.1 Chronic obstructive pulmonary disease with (acute) exacerbation; E11.51 Type 2 diabetes mellitus with diabetic peripheral angiopathy without gangrene; I10 Essential (primary) hypertension; N40.0 Benign prostatic hyperplasia without lower urinary tract symptoms; E78.5 Hyperlipidemia, unspecified; Z20.828 Contact with and (suspected) exposure to other viral communicable diseases; F17.210 Nicotine dependence, cigarettes, uncomplicated; Z79.84 Long term (current) use of oral hypoglycemic drugs
CPT/HCPCS: 12345; 36415; 36416; 71045; 71260; 74177; 80048; 80053; 81001; 82962; 83036; 83605; 83690; 83735; 83880; 84100; 84145; 84443; 85025; 85610; 86403; 87040; 87070; 87635; 87804; 93005; 94640; 94664; 94760; 96372; 96375; 99283; J0456; J0696; J1170; J1650; J1815; J2270; J2405; J3535; J7030; J7050; J7512; Q9967

== ENCOUNTER 2019-07-24 15:39 | Emergency (ER) | payer OTHER, MEDICARE, SELFPAY ==
[2019-07-24 15:52] VITALS: BP 120/73; PULSE 91; RESP 14; TEMP 36.7; O2SAT 96; BMI 28.8
--- NOTE | 2019-07-24 16:01 | ECG_ITS ---
Measurements Intervals [place] Rate: 89 P: 77 [place]: 184 QRS: -19 QRSD: 85 T: 49 QT: 328 QTc: 399 SINUS RHYTHM POSSIBLE LEFT ATRIAL ENLARGEMENT [-0.1mV P WAVE IN V1/V2] Compared to ECG 07/07/2019 01:25:29 Sinus arrhythmia no longer present Myocardial infarct finding no longer present Electronically Signed On 07-24-2019 17:04:51 CDT by Luigi Moore M.D. [email or web address]
--- NOTE | 2019-07-24 16:01 | XR_ITS ---
WS: [id number] XR chest 1V portable [id number] REASON FOR EXAM: sob FINDINGS: Oblique clearing of the pneumonia in the right and left lower lungs. There is some postop b ronchitis seen on the right. The heart and mediastinal interfaces were normal. The hilum and apices are normal. XR/XR chest 1V portable [id number] IMPRESSION: Resolved bilateral pneumonia with low-grade bronchitis residue on the right.
[2019-07-24 16:43] VITALS: RESP 18
[2019-07-24 16:45] VITALS: RESP 18
[2019-07-24 16:58] LABS: Basophils # 0.1 10^3/uL (0.0-0.1); Basophils % 1.1 %; Eosinophils # 0.3 10^3/uL (0.0-0.8); Hematocrit 45.3 % (42.0-52.0); Hemoglobin 14.5 g/dL (11.7-16.6); Lymphocytes # 1.5 10^3/uL (0.8-4.8); Lymphocytes % 11.7 %; Mean Corpuscular Volume 87.5 fL (80-94); Monocytes % 7.7 %; Neutrophils # 9.9 10^3/uL (1.8-7.7); Neutrophils % 76.3 %; Nucleated Red Blood Cells % 0 %; Platelet Count 316 10^3/cmm (130-400); Red Blood Count 5.18 10^6/uL (4.1-5.3); Red Cell Distribution Width 16.1 % (12.1-15.1)
--- NOTE | 2019-07-24 17:07 | ED_ITS ---
HPI - SOB/Dyspnea General: Chief Complaint: Shortness of Breath/Dyspnea Stated Complaint: SOB Time Seen by Provider: 07/24/19 16:48 History of Present Illness: HPI Narrative: 69-year-old male was seen by home health today and they thought he was extremely short of breath when I checked his vitals he was treated for pneumonia couple weeks ago to [facility] he said he had a nonproductive cough since then he does have some chest pain but he states that is always present has not really changed usually associated with exertion there is not been any significant change in the character or frequency of it recently. He does not get any dyspnea when he is at rest he denies any orthopnea but with activity he states he does get a little more short of breath he denies any abdominal pain dysuria urgency or frequency any GI or problems. MD elicited complaint: shortness of breath and cough Pertinent past history: COPD Context: recent illness Timing: constant Severity: moderate Exacerbating factors: exertion and coughing Relieving factors: rest Associated symptoms: Reports chest pain and orthopnea; Deny abdominal pain, fever(s), nausea or vomiting Review of Systems Const: Denies: fever(s), chills, body aches, change in appetite, fatigue or malaise ENMT: Denies: throat pain, ear or mastoid pain, nasal discharge or nasal congestion Card: Reports: chest pain, dyspnea on exertion and orthopnea; Denies: edema Resp: Reports: dyspnea and non-productive cough; Denies: productive cough GI: Denies: abdominal pain, nausea, vomiting, hematemesis, coffee ground emesis, diarrhea, constipation, bloating, hematochezia or melena : Denies: flank pain, dysuria, urinary frequency or urinary urgency Skin/Breast: Denies: rash or pruritus PFSH ED PFSH: Medical History (Updated 07/25/19 @ 16:42 by Sam Lomas DO) CAD (coronary artery disease) Diabetes Diverticulitis Essential hypertension Surgical History (Updated 07/24/19 @ 17:18 by aSm Lomas DO) History of appendectomy History of cholecystectomy Social History Smoking and tobacco status: former smoker Physical Exam Const: COMMON NORMALS: no acute distress GENERAL APPEARANCE: cooperative and comfortable ORIENTATION/CONSCIOUSNESS: Yes awake, Yes oriented to person, Yes oriented to place and Yes oriented to time HENMT: COMMON NORMALS: normocephalic, atraumatic, hearing grossly normal bilaterally, external ears normal, EAC's normal, TM's normal bilaterally, Normal nasal mucous membranes and turbinates present, moist oral mucous membranes and oropharynx normal HEAD & SCALP: normocephalic and atraumatic NOSE: Normal nasal mucous membranes and turbinates present EXTERNAL EAR: Yes external ears normal EXTERNAL AUDITORY CANAL: EAC's normal TYMPANIC MEMBRANE: TM's normal bilaterally Eye: COMMON NORMALS: Equal, round and reactive pupils present, EOMs intact bilaterally, conjunctivae normal and no scleral icterus CONJUNCTIVA: Yes conjunctivae normal PUPIL: Yes Equal, round and reactive pupils present Neck/C-Spine: COMMON NORMALS: full ROM, no lymphadenopathy, supple and no JVD Lymph: LYMPHATIC: no lymphadenopathy noted and no lymphedema noted Resp: COMMON NORMALS: normal respiratory effort, No retractions, No use of accessory muscles and clear to auscultation bilaterally AUSCULTATION: clear to auscultation bilaterally Cardio: COMMON NORMALS: no JVD, regular rate, regular rhythm and No murmurs present (Cardio) RATE: regular rate RHYTHM: regular rhythm GI: COMMON NORMALS: Soft to palpation and No hepatosplenomegaly present AUSCULTATION: Yes normoactive bowel sounds PALPATION: Yes Soft to palpation, No Tenderness to palpation present (GI), No Guarding due to palpation present (GI) and Yes No hepatosplenomegaly present Extremity: COMMON NORMALS: normal to inspection, capillary refill normal, no clubbing, cyanosis or edema, no calf tenderness and no pedal edema Neuro: SENSORIUM/ORIENTATION: Yes oriented to person, Yes oriented to place and Yes oriented to time Skin: COMMON NORMALS: no rashes or lesions noted GENERAL SKIN EXAM: no rashes or lesions noted Course Vital Signs: Vital signs: Vital Signs Temperature 98.1 F 07/24/19 15:52 Pulse Rate 88 07/24/19 18:54 Respiratory Rate 16 07/24/19 18:54 Blood Pressure 110/74 07/24/19 18:54 Pulse Oximetry 95 07/24/19 18:54 MDM - SOB/Dyspnea MDM Narrative: Medical decision making narrative: X-ray shows no acute pneumonia he is actually feeling well we will go ahead and discharge him for getting worsening or change symptoms return did encourage him to increase his fluid intake did not think he hydrated he is not interested in being monitored. He would prefer to have his labs rechecked as an outpatient basis. Calcium BUN/creatinine recheck in a few days he needs further work-up for his hypercalcemia with his primary care physician Lab Data: Labs: Lab Results 07/24/19 07/24/19 Range/Units 16:39 16:39 WBC 13.0 H (4.0-10.0) 10^3/ uL RBC 5.18 (4.1-5.3) 10^6/u L Hgb 14.5 (11.7-16.6) g/dL Hct 45.3 (42.0-52.0) % MCV 87.5 (80-94) fL MCH 28.0 (28.0-34.0) pg MCHC 32.0 (30.0-36.0) g/dL RDW 16.1 H (12.1-15.1) % Plt Count 316 (130-400) 10^3/c mm MPV 11.0 H (7.4-10.4) fL Neut % (Auto) 76.3 % Lymph % (Auto) 11.7 % [place] % (Auto) 7.7 % Eos % (Auto) 2.0 % Baso % (Auto) 1.1 % Neut # (Auto) 9.9 H (1.8-7.7) 10^3/u L Lymph # (Auto) 1.5 (0.8-4.8) 10^3/u L [place] # (Auto) 1.0 H (0.2-0.9) 10^3/u L Eos # (Auto) 0.3 (0.0-0.8) 10^3/u L Baso # (Auto) 0.1 (0.0-0.1) 10^3/u L Nucleated RBC % (a uto) 0 % Nucleated RBCs # 0.0 /100WBC Sodium 135 L (136-145) mmol/L Potassium 4.8 (3.5-5.1) mmol/L Chloride 100 (98-107) mmol/L Carbon Dioxide 18 L (22-29) mmol/L Anion Gap 21.8 H (5-19) BUN 47 H (8-23) mg/dL Creatinine 1.3 H (0.7-1.2) mg/dL Glucose 113 (65-115) mg/dL Calculated Osmolal ity 279 L (285-295) mOsm/k g Calcium 11.6 H (8.5-10.5) mg/dL Total Bilirubin 0.3 (0.15-1.2) mg/dL AST 17 (0-40) U/L ALT 16 (0-41) U/L Alkaline Phosphata se 213 H (40-130) IU/L Total Protein 8.9 H (6.6-8.7) g/dL Albumin 4.1 (3.5-5.2) g/dL Globulin 4.8 H (1.3-4.6) g/dL Discharge Plan Discharge Patient Disposition: Home, Self-Care Clinical Impression: Essential hypertension, Community acquired pneumonia, Hypercalcemia Condition: Stable Prescriptions: No Action pentoxifylline 400 mg Tablet Extended Release 400 mg PO BID RF: 0 tamsulosin 0.4 mg capsule 0.4 mg PO DAILY RF: 0 gemfibrozil 600 mg tablet 600 mg PO BID RF: 0 metformin 1,000 mg tablet 1,000 mg PO BID RF: 0 lisinopril 10 mg Tablet 10 mg PO DAILY RF: 0 glipizide 5 mg tablet 5 mg PO BID RF: 0 meclizine 25 mg Tablet,Chewable 25 mg PO TID PRN (Reason: NAUSEA/VOMITING) RF: 0 cholecalciferol (vitamin D3) 50 mcg (2,000 unit) capsule 50 mcg PO DAILY RF: 0 tramadol 50 mg tablet 50 mg PO Q12H PRN (Reason: pain) Qty: 10 RF: 0 benzonatate [Tessalon Perles] 100 mg capsule 100 mg PO BID PRN (Reason: cough) Qty: 14 RF: 0 Discharge Orders: Discharge Order (Routine); Ordered 07/24/19 Ordered By: Sam Lomas Referrals: Evan Rock DO [Primary Care Provider] - Discharge Diet: Usual diet Discharge Activity: Resume usual activity Activity Restrictions/Additional Instructions: Follow-up with your doctor return if any problems. Interventions: ED Discharge Assessment Last Done: 07/24/19 18:54 ED Charges Last Done: 07/24/19 18:54 Discharge Date/Time: 07/24/19 18:55 Coding Level of Care Code ED Director Hedis for Chg Fwd Exam Comprehensive
[2019-07-24 17:28] LABS: Alanine Aminotransferase 16 U/L (0-41); Albumin Level 4.1 g/dL (3.5-5.2); Alkaline Phosphatase 213 IU/L (40-130); Anion Gap 21.8 (5-19); Aspartate Amino Transferase 17 U/L (0-40); Blood Urea Nitrogen 47 mg/dL (8-23); Calcium 11.6 mg/dL (8.5-10.5); Carbon Dioxide 18 mmol/L (22-29); Chloride 100 mmol/L (98-107); Globulin 4.8 g/dL (1.3-4.6); Glucose 113 mg/dL (65-115); Osmolality Calculated 279 mOsm/kg (285-295); Potassium 4.8 mmol/L (3.5-5.1); Sodium 135 mmol/L (136-145); Total Bilirubin 0.3 mg/dL (0.15-1.2); Total Protein 8.9 g/dL (6.6-8.7)
[2019-07-24 18:54] VITALS: BP 110/74; PULSE 88; RESP 16; O2SAT 95
--- NOTE | 2019-07-27 08:18 | DCPLANNER ---
human resources communications manager had message to let patients primary care provider know that patient is needing repeat labs. Patient has [employer] [facility], assistant case manager called Chiqui with [facility], and informed Chiqui that patient was seen in the ED and that he is needing repeat labs. Chiqui stated that she would put a message into patients pact team about repeat labs to be scheduled.
== END 2019-07-24 18:55 | disposition home or self-care (01) ==
PROVIDERS: Emergency Medicine; Emergency Provider Family Medicine; PCP Emergency Medicine Emergency Medical Services
DX: I10 Essential (primary) hypertension (principal); J18.8 Other pneumonia, unspecified organism; E83.52 Hypercalcemia; Z79.84 Long term (current) use of oral hypoglycemic drugs; I25.10 Atherosclerotic heart disease of native coronary artery without angina pectoris; E11.9 Type 2 diabetes mellitus without complications; Z87.891 Personal history of nicotine dependence
CPT/HCPCS: 12345; 36415; 71045; 80053; 85025; 93005; 99282; 99284

== ENCOUNTER 2019-09-26 14:29 | Outpatient (CLI) | payer OTHER, MEDICARE, SELFPAY ==
--- NOTE | 2019-09-26 14:35 | US_ITS ---
WS: [id number] THYROID ULTRASOUND HISTORY: ENLARGED THYROID/GOITER COMPARISON: None available. Right lobe: 6.0 cm x 3.5 cm x 2.6 cm. Volume: 28.8 cm3. Enlarged thyroid. There is a large almost completely solid hypoechoic mass in the central gland. Mass measures 4.4 x 2.7 x 3.2 cm. There is a small complex fluid component. Mild peripheral increased vas cularity. Mass is wider than tall. No echogenic foci are identified. Margins are ill-defined. TI-RADS: 4 Left lobe: 4.5 cm x 1.2 cm x 1.3 cm. Volume: 3.8 cm3. Normal size and echotexture. No significant or dominant nodules are present. Isthmus: 0.4 cm. US/US thyroid [id number] IMPRESSION: 1. RIGHT thyroid nodule moderately suspicious for malignancy (TI-RADS 4). John mmend fine-needle aspiration by ultrasound. 2. Negative LEFT thyroid.
== END 2019-09-26 14:30 | disposition home or self-care (01) ==
LOC: RAD 14:33
PROVIDERS: PCP Emergency Medicine Emergency Medical Services; Visit Provider Emergency Medicine Emergency Medical Services
DX: E04.9 Nontoxic goiter, unspecified (principal); E04.1 Nontoxic single thyroid nodule
CPT/HCPCS: 76536

== ENCOUNTER → 2019-10-27 08:52 | Outpatient (BNVA) | payer OTHER, MEDICARE, SELFPAY | PROVIDERS: PCP Emergency Medicine Emergency Medical Services; Visit Provider Surgery | DX: K92.1 Melena (principal); Z20.828 Contact with and (suspected) exposure to other viral communicable diseases | CPT/HCPCS: 87635 ==

== ENCOUNTER → 2019-10-27 08:52 | Outpatient (BNVA) | payer OTHER, MEDICARE, SELFPAY | PROVIDERS: PCP Emergency Medicine Emergency Medical Services; Visit Provider Surgery | DX: Z12.11 Encounter for screening for malignant neoplasm of colon (principal); Z20.828 Contact with and (suspected) exposure to other viral communicable diseases | CPT/HCPCS: 87635 ==

== ENCOUNTER 2019-11-14 07:52 | Outpatient (CLI) | payer OTHER, MEDICARE, SELFPAY ==
--- NOTE | 2019-11-14 | CT_ITS ---
WS: [id number] CT NECK WITH CONTRAST HISTORY: MASS LOCALIZED SWELLING TECHNIQUE: Contiguous 5 mm axial images are performed through the neck with intravenous contrast. Sag ittal and coronal reformats are also submitted. All CT scans at [facility] use at least o ne of these dose optimization techniques: automated exposure control; mA and/or kV adjustment per pat ient size (includes targeted exams where dose is matched to clinical indication); or iterative recons truction. CONTRAST: CONTRAST: Omnipaque 300; 95 mL IV. DLP: 3504.16 mGycm COMPARISON: Cervical spine CT 06/20/2019 Nasopharynx, oropharynx, hypopharynx and larynx are unremarkable. No soft tissue masses or abnormal e nhancement. 3 mm calcification in the LEFT oropharyngeal soft tissue uncertain etiology. Present on t he prior study of 06/20/2019 also. Torus tubarius and fossa of Rosenmuller and parapharyngeal fat are normal. No significant lymphadenopathy is identified. Large hypervascular RIGHT thyroid nodule extending over length of 4.2 cm x 3.0 x 3.3 cm. There is pradeep tral nonenhancing hypoattenuating areas which may be areas of necrosis or cystic change. Small LEFT t hyroid lobe. Hypervascular nodule within the deep LEFT parotid measures 4 mm. Moderate degenerative disc disease and endplate osteophytes at C5-6 and C6-7. Visualized portions of the skull base demonstrate no abnormalities. Orbits and globes are within norm al limits. No soft tissue masses. Visualized paranasal sinuses and mastoid air cells are normal. Lung apices are clear. CT/CT neck w con* [id number] IMPRESSION: 1. Large hypervascular but mixed attenuation RIGHT thyroid mass measures 4.2 x 3.0 x 3.3 cm. Moderate suspicion for malignancy. Mass was recently evaluated b y ultrasound on 09/26/2019. 2. No adenopathy. 3. 4 mm LEFT parotid mass. May be of benign or malignant etiology. Too small to characterize further.
[2019-11-14 08:58] LABS: Blood Urea Nitrogen 33 mg/dL (8-23)
[2019-11-14] MEDS: iohexol 300 mg/mL 100 mL Btl IV (09:14)
== END 2019-11-14 07:53 | disposition home or self-care (01) ==
LOC: RADWPI 07:59
PROVIDERS: PCP Emergency Medicine Emergency Medical Services; Visit Provider Specialist
DX: R22.1 Localized swelling, mass and lump, neck (principal); E07.89 Other specified disorders of thyroid; D49.0 Neoplasm of unspecified behavior of digestive system
CPT/HCPCS: 70491; 82565; 84520; Q9967

== ENCOUNTER → 2020-02-12 11:39 | Outpatient (BNVA) | payer OTHER, SELFPAY | PROVIDERS: PCP Emergency Medicine Emergency Medical Services; Visit Provider Specialist | DX: M25.512 Pain in left shoulder (principal) | CPT/HCPCS: 73030 ==

== ENCOUNTER 2020-03-01 14:52 | Outpatient (CLI) | payer OTHER, SELFPAY ==
--- NOTE | 2020-03-01 15:15 | MR_ITS ---
WS: [id number] MRI LEFT SHOULDER HISTORY: M25.519 - Pain in unspecified shoulder COMPARISON: LEFT shoulder radiograph 02/12/2020 TECHNIQUE: Multiplanar sequences of the shoulder joint are submitted. Moderate hypertrophy of the AC joint. Soft tissue and bone hypertrophy with increased fluid along the inferior portion of the AC joint. There is encroachment upon the anterior supraspinatus muscle and t endon with subacromial and subdeltoid bursal fluid. Small osteophyte upon the distal undersurface of the acromion measures 5 mm. No os acromion. Biceps tendon is in normal position. Full-thickness tear involving the distal supraspinatus tendon. This may be a chronic tear as there is significant atrophy of the distal tendon with fraying of the distal surface of the tendon over the h umeral head. This is a full-thickness tear extending over a width of 12 mm. Mild atrophy of the supra spinatus muscle. Subscapularis and infraspinatus tendons are intact. Mild tendinopathy in the subscap ularis distally. Mild narrowing of the glenohumeral joint. Loss of cartilage over the humeral head greatest over the g reater tuberosity. Intrasubstance degeneration in the labrum but no definite labral tear identified. MR/MR shoulder LT wo con* [id number] IMPRESSION: 1. 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 2. Complete full-thickness tear with slight retraction involving the distal mallory praspinatus tendon. Tendon is retracted to the superior humeral head with frayi ng of the distal surface of the tendon. 3. Mild atrophy of the supraspinatus muscle. 4. No additional tendon tears are identified.
== END 2020-03-01 14:53 | disposition home or self-care (01) ==
LOC: RADSHAW 14:55
PROVIDERS: PCP Emergency Medicine Emergency Medical Services; Visit Provider Specialist
DX: M19.012 Primary osteoarthritis, left shoulder (principal); M75.122 Complete rotator cuff tear or rupture of left shoulder, not specified as traumatic
CPT/HCPCS: 73221

== ENCOUNTER → 2020-10-04 12:10 | Outpatient (BNVA) | payer OTHER, SELFPAY | PROVIDERS: PCP Emergency Medicine Emergency Medical Services; Visit Provider Surgery | DX: Z20.822 Contact with and (suspected) exposure to COVID-19 (principal) | CPT/HCPCS: 87635 ==

== ENCOUNTER 2020-10-10 07:23 | Day surgery (SDC) | payer OTHER, SELFPAY ==
[2020-10-08 11:44] VITALS: BMI 31.7
[2020-10-10 07:53] VITALS: BP 151/77; PULSE 68; RESP 18; TEMP 36.5; O2SAT 95
[2020-10-10 08:05] LABS: Glucose Point of Care 155 mg/dL (70-110)
--- NOTE | 2020-10-10 08:13 | ANES.PREANE2 ---
Pre-Anesthetic Assessment Pre-Anesthetic Assessment: Height/Weight: Height 1.73 m Weight 94.801 kg Temp Pulse Resp BP Pulse Ox 97.7 F 68 18 151/77 95 10/10/20 07:53 10/10/20 07:53 10/10/20 07:53 10/10/20 07:53 10/10/20 07:53 Preop Diagnosis: hematochezia Proposed Procedure: Operation Date: 10/10/20 08:30 Proposed Procedures p EGD [id number] k92.1(Not Applicable) - Demetrius Degroot MD s Colonoscopy(Not Applicable) - Demetrius Degroot MD Familial anesthetic complications: none Was Beta Gabriela taken within 24 hours: N/A Was Clonidine taken within 24 hours: N/A Last intake: Intake Last Liquid Date 10/09/20 Last Liquid Time 20:00 Last Solid Date 10/08/20 Last Solid Time 18:00 Social: Social History: Tobacco (quit 1 month ago) and No alcohol Exam: Pre-Anes Outpt Exam: alert, oriented x 3, clear to auscultation bilaterally and regular rate & rhythm Airway: Submandibular: WNL Cervical ROM: WNL MP: 1 Dentition: False Pulmonary: Pulmonary: COPD, SOLER and Sleep apnea Comments: not on oxygen CV/HEM: CV/HEM: CAD and HTN Comments: AAA just watching : : Chronic renal Insufficiency Hepatic: Hepatic: None reported GI: GI: GERD Metabolic: Metabolic: DM, Hyperlipidemia, Morbid obesity and Thyroid Musc/skel: Musc/skel: Lower Back Pain and Weakness (BLE) Neuropsych: Neuropsych: None reported Anesthetic Plan: ASA status: 3 Anesthesia: MAC Risk of > 500 ml blood loss (7ml/kg in children): No PFSH Anesthesia PFSH: Medical History (Updated 08/16/20 @ 11:52 by Demetrius Degroot MD) CAD (coronary artery disease) Diabetes Diverticulitis Essential hypertension Hemorrhoids Surgical History History of appendectomy History of cholecystectomy History of colonoscopy (~2016) normal- [facility] [place] Social History Smoking and tobacco status: former smoker Data Anesthesia Other Labs: Laboratory Results - last 48 hr 10/10/20 08:02 POC Glucose 155 H Cardiac Studies: No Data to Display
[2020-10-10] MEDS: sodium chloride 0.9% 1,000 ML 30 ML IV (08:16)
--- NOTE | 2020-10-10 08:23 | ECG_ITS ---
[facility] Test Date: 2020-10-10 Pat Name: Nghia Giron Department: Room: Gender: Male Director Insurance: : [id number] Requested By: Anamaria Kendrick Order Number: [id number] Gay MD: Gabriela Truong M.D. Measurements Intervals [place] Rate: 59 P: 69 NM: 198 QRS: -17 QRSD: 110 T: 73 QT: 444 QTc: 443 Interpretive Statements SINUS BRADYCARDIA Compared to ECG 07/24/2019 16:32:34 Sinus rhythm no longer present Electronically Signed On 10-11-2020 18:29:02 CDT by Gabriela Truong M.D. [id number]
--- NOTE | 2020-10-10 08:59 | P.HP_ITS ---
Same Day Surgery H&P Indication for Procedure/HPI DATE OF PROCEDURE: October 10, 2020 CHIEF COMPLAINT/INDICATIONFOR SURGICAL PROCEDURE: anemia, panendoscopy PREOP DIAGNOSIS: hematochezia PLANNED PROCEDRUE: Operation Date: 10/10/20 08:30 Proposed Procedures p EGD [id number] k92.1(Not Applicable) - Demetrius Degroot MD s Colonoscopy(Not Applicable) - Demetrius Degroot MD Medications/Allergies* Home Medications Medication Instructions Recorded Confirmed Type cholecalciferol (vitamin D3) 50 mcg PO DAILY 06/20/19 10/10/20 History gemfibrozil 600 mg PO BID 06/20/19 10/10/20 History glipizide 5 mg PO BID 06/20/19 10/10/20 History lisinopril 10 mg PO DAILY 06/20/19 10/10/20 History metformin 1,000 mg PO BID 06/20/19 10/10/20 History pentoxifylline 400 mg PO BID 06/20/19 10/10/20 History tamsulosin 0.4 mg PO DAILY 06/20/19 10/10/20 History Allergies/Adverse Reactions Allergy/AdvReac Type Severity Reaction Status Date / Time Trvtcsj-Exf-Ign Reductase Allergy ALGY-Rash Verified 10/10/20 07:46 Inhibitor Current Medications: Generic Name Dose Route Start Last Admin Trade Name Freq PRN Reason Stop Dose Admin Sodium Chloride 1,000 mls @ 30 mls/hr 10/10/20 07:45 10/10/20 08:16 Sodium Chloride 0.9% IV 10/11/20 07:44 30 mls/hr .Q24H ELLIE Administration Pertinent History/Comorbid Conditions* Medical History (Updated 08/16/20 @ 11:52 by Demetrius Degroot MD) CAD (coronary artery disease) Diabetes Diverticulitis Essential hypertension Hemorrhoids Surgical History (Updated 10/05/19 @ 14:07 by Demetrius Degroot MD) History of appendectomy History of cholecystectomy History of colonoscopy (~2016) [facility] [place] Social History Smoking and tobacco status: former smoker Pertinent Exam Findings alert and oriented x 3 Recommendations Surgery/Procedure today Coding Level of Care Code [employer] Technician for Devorah Hou
[2020-10-10 09:31] VITALS: BP 126/66; PULSE 63; RESP 18; TEMP 36.6; O2SAT 99
--- NOTE | 2020-10-10 09:32 | ANE.PACU2 ---
Inpatient post-anesthesia follow up: Airway intact: Yes Vital signs: Temperature 97.7 F Pulse Rate 68 Respiratory Rate 18 Blood Pressure 151/77 Pulse Oximetry 95 Oxygen Delivery Me thod Nasal Cannula Oxygen Flow Rate Fraction of Inspir ed Oxygen Hydration adequate: Yes Nausea and vomiting: No Pain level: 1 Mental status: Baseline
[2020-10-10 09:42] VITALS: BP 130/74; PULSE 61; RESP 18; TEMP 36.3; O2SAT 97
== END 2020-10-10 10:00 | disposition home or self-care (01) ==
PROVIDERS: PCP Emergency Medicine Emergency Medical Services; Visit Provider Surgery
PROC: 0DJ08ZZ Inspection of Upper Intestinal Tract, Via Natural or Artificial Opening Endoscopic (ICD-10-PCS; CPT 43235; principal; 2020-10-10 08:30)
PROC: 0DJD8ZZ Inspection of Lower Intestinal Tract, Via Natural or Artificial Opening Endoscopic (ICD-10-PCS; CPT 45378; 2020-10-10 08:30)
DX: K92.1 Melena (principal); D64.9 Anemia, unspecified; D12.3 Benign neoplasm of transverse colon; K64.8 Other hemorrhoids; K29.70 Gastritis, unspecified, without bleeding; Z82.49 Family history of ischemic heart disease and other diseases of the circulatory system; I10 Essential (primary) hypertension; E11.9 Type 2 diabetes mellitus without complications; Z87.891 Personal history of nicotine dependence; J44.9 Chronic obstructive pulmonary disease, unspecified; I25.10 Atherosclerotic heart disease of native coronary artery without angina pectoris; G47.30 Sleep apnea, unspecified; E66.01 Morbid (severe) obesity due to excess calories; Z68.31 Body mass index [BMI] 31.0-31.9, adult
CPT/HCPCS: 36416; 43235; 45380; 82962; 88305; 93005; 96360; 96361; J2704; J7030

== ENCOUNTER → 2021-10-06 13:15 | Outpatient (BNVA) | payer OTHER, SELFPAY | PROVIDERS: PCP Emergency Medicine Emergency Medical Services; Referring Provider Emergency Medicine Emergency Medical Services; Visit Provider Podiatrist Foot & Ankle Surgery | DX: M25.572 Pain in left ankle and joints of left foot (principal) | CPT/HCPCS: 73610; 99203; 99204 ==

== ENCOUNTER → 2022-01-05 13:41 | Outpatient (BNVA) | payer OTHER, SELFPAY | PROVIDERS: PCP Emergency Medicine Emergency Medical Services; Visit Provider Podiatrist Foot & Ankle Surgery | DX: M25.572 Pain in left ankle and joints of left foot (principal); E11.8 Type 2 diabetes mellitus with unspecified complications; Z79.84 Long term (current) use of oral hypoglycemic drugs | CPT/HCPCS: 99214 ==

== ENCOUNTER → 2022-06-15 12:41 | Outpatient (BNVA) | payer OTHER, SELFPAY | PROVIDERS: PCP Emergency Medicine Emergency Medical Services; Visit Provider Podiatrist Foot & Ankle Surgery | DX: I73.9 Peripheral vascular disease, unspecified (principal); E11.8 Type 2 diabetes mellitus with unspecified complications; Z79.84 Long term (current) use of oral hypoglycemic drugs; L60.3 Nail dystrophy; M20.41 Other hammer toe(s) (acquired), right foot; M20.42 Other hammer toe(s) (acquired), left foot | CPT/HCPCS: 99213 ==

== ENCOUNTER → 2022-08-11 12:46 | Outpatient (BNVA) | payer OTHER, SELFPAY | PROVIDERS: PCP Emergency Medicine Emergency Medical Services; Visit Provider Podiatrist Foot & Ankle Surgery | DX: E11.8 Type 2 diabetes mellitus with unspecified complications (principal); I73.9 Peripheral vascular disease, unspecified; L60.3 Nail dystrophy; M20.41 Other hammer toe(s) (acquired), right foot; M20.42 Other hammer toe(s) (acquired), left foot; M25.572 Pain in left ankle and joints of left foot; Z79.84 Long term (current) use of oral hypoglycemic drugs | CPT/HCPCS: 11721; 99213 ==

== ENCOUNTER → 2022-08-19 15:03 | Outpatient (BNVA) | payer OTHER, SELFPAY | PROVIDERS: PCP Emergency Medicine Emergency Medical Services; Visit Provider Specialist | DX: M75.41 Impingement syndrome of right shoulder (principal); M19.041 Primary osteoarthritis, right hand; S49.91XA Unspecified injury of right shoulder and upper arm, initial encounter; W19.XXXA Unspecified fall, initial encounter | CPT/HCPCS: 20610; 73030; 73130; 99214; J1100; J2795; J3301 ==

== ENCOUNTER 2022-09-08 15:31 | Outpatient (CLI) | payer OTHER, SELFPAY ==
--- NOTE | 2022-09-08 15:35 | CTR_ITS ---
PROCEDURE INFORMATION: Exam: CTA Abdominal Aorta and Bilateral Lower Extremities (Run-off) With Contrast Exam date and time: 09/08/2022 3:55 PM Age: 72 years old Clinical indication: Condition or disease; Other: Peripheral vascular disease; Prior surgery; Surgery date: 6+ months; Surgery type: Gb, appy, colon; Additional info: Abdominal aorta, peripheral vascular disease TECHNIQUE: Imaging protocol: Computed tomographic angiography of the of the abdominal aorta, pelvis and bilateral lower extremities with contrast. 3D rendering (Not supervised by radiologist): MIP and/or 3D reconstructed images were created by the technologist. Radiation optimization: All CT scans at this facility use at least one of these dose optimization techniques: automated exposure control; mA and/or kV adjustment per patient size (includes targeted exams where dose is matched to clinical indication); or iterative reconstruction. Contrast material: OMNI 350; Contrast volume: 95 ml; Contrast route: INTRAVENOUS (IV); REPORTING DATA: Count of CT and Cardiac NM exams in prior 12 months: This patient has received 0 known CTs and 0 known cardiac nuclear medicine studies in the 12 months prior to the current study. COMPARISON: 1. CT ang ches abdpel [id number] 06/20/2019 8:[address] angio abdomen pelvis [id number] 12/19/2018 2:38 PM RADIATION DOSE METRICS: Total DLP (mGy-cm): 913.54 FINDINGS: Aorta: There is extensive atherosclerotic plaque in the abdominal aorta without evidence of aneurysm or dissection. The amount of plaque is increased compared with 06/20/2019. This results in up to 60% stenosis of the mid to distal infrarenal abdominal aorta. There is no aneurysm of the abdominal aorta. 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 Celiac and superior mesenteric arteries are patent without significant stenosis. 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 There is moderate stenosis of the origin of the upper renal artery on the left. No significant stenosis is seen in the other renal artery origins. These are not changed from previous. 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 There is approximately 50% stenosis of the origin of the right common iliac artery not significantly changed. There is extensive atherosclerotic calcification of the right internal and external iliac arteries but without significant stenosis. There is atherosclerotic calcification of the right common iliac artery with mild stenosis. Right femoral/popliteal arteries: There is extensive atherosclerotic calcification of the proximal right femoral artery which is occluded few cm beyond its takeoff. The distal right femoral artery reconstitutes via collaterals as it exits the adductor canal. There is atherosclerotic calcification but no significant stenosis in the right popliteal artery. Right infrapopliteal arteries: There is three-vessel runoff below the right knee. The right anterior tibial artery is patent to the level of the ankle but the dorsalis pedis artery is not opacified on this examination. The peroneal artery is patent to the level of the ankle. The right posterior tibial artery is widely patent and supplies the foot via the plantar arcade. Left iliac arteries: Short segment dissection flap left common iliac artery is stable from previous. There is extensive atherosclerotic calcification of the left internal and external iliac arteries without significant stenosis. Left femoral/popliteal arteries: There is atherosclerotic calcification of the left common femoral artery without significant stenosis. The left femoral artery is occluded from its origin. Left profundus femoral artery is patent. Left popliteal artery is patent and is supplied via collateral from the profundus femoral artery. Left infrapopliteal arteries: Left anterior tibial artery is segmentally occluded at multiple levels and reconstitutes distally via collateral vessels. The left dorsalis pedis artery is not identified. Left peroneal artery is patent to the level of the ankle and supplies collateral vessels to the foot. Left posterior tibial artery is widely patent and supplies the foot via the plantar arcade. Liver: There are hypervascular areas in the posterior right lobe of the liver common not significantly changed compared with the previous examination. These may represent areas of transient flow phenomenon or more likely benign hepatic hemangiomas. Gallbladder and bile ducts: There has been a cholecystectomy. Pancreas: The pancreas is normal. Spleen: The spleen is normal. Adrenal glands: The adrenal glands are normal. Kidneys and ureters: There is focal scarring in the posterior aspect of the right mid kidney and in lower pole of the left kidney not changed from previous. There is no evidence of hydronephrosis. There is no evidence of renal or ureteral calcifications. Stomach and bowel: There is no evidence of colitis/diverticulitis. Appendix: Not identified Urinary bladder: There is mild thickening of the urinary bladder wall, likely representing some mild muscular hypertrophy. Reproductive: The prostate demonstrates marked nonspecific enlargement. The seminal vesicles are normal. The prostate gland demonstrates nonspecific parenchymal calcifications. Intraperitoneal space: Unremarkable. No free air. No significant fluid collection. Lymph nodes: No lymphadenopathy. Bones/joints: There are moderate degenerative changes in the lumbar spine. New Schmorl's node deformities are seen of the superior endplates of L4 and L5. Soft tissues: Unremarkable. CT/CT angio abd aorta runof [id number] IMPRESSION: 1. Extensive atherosclerotic disease of the abdominal aorta progressed from 06/20/2019 with over 50% stenosis. 2. 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 3. 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 Occluded right superficial femoral artery with distal reconstitution via collaterals. The right foot is primarily supplied via the posterior tibial artery. 5. Complete occlusion of the left superficial femoral artery with the left popliteal artery reconstitutes via collaterals. Left foot is supplied via the posterior tibial artery primarily and also collateral branches from the peroneal artery.
[2022-09-08] MEDS: iohexol 350 mg/mL 500 mL Btl (per mL) IV (16:14)
== END 2022-09-08 15:32 | disposition home or self-care (01) ==
PROVIDERS: PCP Emergency Medicine Emergency Medical Services; Visit Provider Emergency Medicine Emergency Medical Services
DX: I73.9 Peripheral vascular disease, unspecified (principal); I70.0 Atherosclerosis of aorta; K55.049 Acute infarction of large intestine, extent unspecified; I77.72 Dissection of iliac artery; I70.92 Chronic total occlusion of artery of the extremities
CPT/HCPCS: 75635; Q9967

== ENCOUNTER → 2022-09-09 11:02 | Outpatient (BNVA) | payer OTHER, SELFPAY | PROVIDERS: PCP Emergency Medicine Emergency Medical Services; Visit Provider Specialist | DX: M75.102 Unspecified rotator cuff tear or rupture of left shoulder, not specified as traumatic (principal); M12.812 Other specific arthropathies, not elsewhere classified, left shoulder | CPT/HCPCS: 99213 ==

== ENCOUNTER 2022-10-06 12:56 | Outpatient (CLI) | payer OTHER, SELFPAY ==
--- NOTE | 2022-10-06 13:00 | MR_ITS ---
WS: [id number] MRI RIGHT SHOULDER NONCONTRAST TECHNIQUE: Sagittal T2, coronal T1, T2 and proton density imaging. Axial gradient PDE imaging. CLINICAL INFORMATION: shoulder injury/pain COMPARISON: None. FINDINGS: Moderate to advanced arthritis AC joint with subacromial spurring. Narrowing of the subacromial space . Fluid and edema at the AC joint with subacromial fluid. Impingement of the distal supraspinatus. Ch ronic thinning of the distal supraspinatus with small distal insertional tear. Tendon retraction dist ally measures 1.5 cm. Normal infraspinatus. Normal teres minor. Tendinopathy subscapularis which appears intact. Normal biceps tendon bicipital groove. Degenerative fraying of the glenoid labrum. Moderate degenerative arthritis of the glenohumeral articulation. IMPRESSION: 1. 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 Impingement distal sup raspinatus with subacromial spurring. 2. Small distal insertional tear supraspinatus with 1.5 cm of tendon retraction from the insertion. 3. Rotator cuff is otherwise intact. 4. Tendinopathy supraspinatus and subscapularis. 5. Normal biceps tendon in the bicipital groove. 6. No other acute findings.
== END 2022-10-06 12:57 | disposition home or self-care (01) ==
LOC: RAD 12:59
PROVIDERS: PCP Emergency Medicine Emergency Medical Services; Visit Provider Specialist
DX: M12.812 Other specific arthropathies, not elsewhere classified, left shoulder (principal); M75.102 Unspecified rotator cuff tear or rupture of left shoulder, not specified as traumatic
CPT/HCPCS: 73221

== ENCOUNTER → 2022-10-12 13:30 | Outpatient (BNVA) | payer OTHER, SELFPAY | PROVIDERS: PCP Emergency Medicine Emergency Medical Services; Visit Provider Podiatrist Foot & Ankle Surgery | DX: E11.8 Type 2 diabetes mellitus with unspecified complications (principal); M25.572 Pain in left ankle and joints of left foot; L60.3 Nail dystrophy; I73.9 Peripheral vascular disease, unspecified; M20.41 Other hammer toe(s) (acquired), right foot; M20.42 Other hammer toe(s) (acquired), left foot; Z79.84 Long term (current) use of oral hypoglycemic drugs | CPT/HCPCS: 11721 ==

== ENCOUNTER 2022-12-07 06:14 | Emergency (ER) | payer OTHER, SELFPAY ==
[2022-12-07] VITALS (10 sets, daily range): BP systolic 108–194; BP diastolic 62–100; PULSE 66–114; RESP 14–98; TEMP 36.6; O2SAT 94–97; BMI 33.4
--- NOTE | 2022-12-07 06:20 | XRR_ITS ---
PROCEDURE INFORMATION: Exam: XR Chest Exam date and time: 12/07/2022 6:59 AM Age: 72 years old Clinical indication: Cough TECHNIQUE: Imaging protocol: Radiologic exam of the chest. Views: 1 view. COMPARISON: CR XR chest 1V portable [id number] 07/24/2019 4:11 PM FINDINGS: Lungs: Unremarkable. No consolidation. Pleural spaces: Unremarkable. No pleural effusion. No pneumothorax. Heart/Mediastinum: Unremarkable. No cardiomegaly. Bones/joints: Unremarkable. XR/XR chest 1V portable [id number] IMPRESSION: No acute findings.
--- NOTE | 2022-12-07 06:25 | W.ED.GENADLT ---
HPI - General Adult General: Chief complaint: General Medical Stated complaint: DKA Time Seen by Provider: 12/07/22 06:15 History of Present Illness: 72-year-old male presents emergency department via EMS. EMS states that the patient was found on his bedroom floor after falling at approximately 4 AM this morning. Patient states that he does not remember the details of the fall and may have passed out for few minutes. Patient does appear to be very shaky and states this is his normal. He states he is normally with generalized weakness and shakiness. Initial presentation from EMS states that they were concerned that he might be examining signs of DKA. He does have decreased mental status upon presentation to the emergency department although he is awake and alert and following commands at present. He denies pain, chest pain or dizziness at present. It is reported that he has had several episodes of nausea with vomiting and is actively vomiting upon arrival to the emergency department. Review of Systems General: Reports: ROS unobtainable due to mental status PFS ED PFSH: Medical History CAD (coronary artery disease) Diabetes Diverticulitis Essential hypertension Hemorrhoids Surgical History H/O esophagogastroduodenoscopy (10/10/20) gastritis History of appendectomy History of cholecystectomy History of colonoscopy (10/10/20) polyp, hemorrhoids, diverticulosis Social History Smoking and tobacco/nicotine status: former use of tobacco/nicotine Physical Exam Const: GENERAL APPEARANCE: lethargic, ill appearing and frail appearing ORIENTATION/CONSCIOUSNESS: Yes oriented to person, Yes oriented to place and Yes lethargic; not oriented to time HENMT: COMMON NORMALS: normocephalic, atraumatic and Normal nasal mucous membranes and turbinates present HEAD & SCALP: normocephalic and atraumatic NOSE: Normal nasal mucous membranes and turbinates present Eye: COMMON NORMALS: Equal, round and reactive pupils present and EOMs intact bilaterally PUPIL: Yes Equal, round and reactive pupils present Neck/C-Spine: COMMON NORMALS: no meningeal signs and no JVD CAROTIDS: Yes normal carotid upstroke and No bruit CERVICAL SPINE: Yes cervical ROM normal, No Cervical spine tenderness, No step off deformity, No Paracervical muscle tenderness, No Paracervical spasm, No Trapezius muscle tenderness and No collar present Chest: COMMONS NORMALS: normal inspection of the chest and normal palpation of entire chest wall Resp: COMMON NORMALS: normal respiratory effort, No use of accessory muscles and clear to auscultation bilaterally AUSCULTATION: clear to auscultation bilaterally Cardio: COMMON NORMALS: no JVD, regular rate, regular rhythm, S1 normal heart sound present and Peripheral pulses 2+ throughout RATE: regular rate RHYTHM: regular rhythm HEART SOUNDS: S1 normal heart sound present PERIPHERAL PULSES: Peripheral pulses 2+ throughout GI: COMMON NORMALS: Normal to inspection, nondistended, normoactive bowel sounds present, Soft to palpation and non-tender PALPATION: Yes Soft to palpation : COMMON NORMALS: Yes no CVA tenderness BLADDER/KIDNEY EXAM: Yes no CVA tenderness Back/Pelvis: COMMON NORMALS: no CVA tenderness, no thoracic nor lumbar tenderness and thoraco-lumbar ROM normal Extremity: COMMON NORMALS: normal to inspection, full ROM and capillary refill normal Neuro: SENSORIUM/ORIENTATION: Yes oriented to person, Yes oriented to place, No oriented to time and Yes lethargic MENINGEAL SIGNS: Yes no meningeal signs and No nuccal rigidity COORDINATION/BALANCE: No [id number] test normal, No Normal rapid alternating movements of the distal upper extremity present (Neuro) and No Normal rapid alternating movements of the distal lower extremity present (Neuro) SPEECH: abnormal speech SENSORY EXAM: Yes extremities COORDINATION: [id number] test abnormal, abnormal rapid alternating movement UE and abnormal rapid alternating movement LE Psych: APPEARANCE: Yes grossly normal MOOD & AFFECT: Yes anxious Skin: COMMON NORMALS: no rashes or lesions noted, no wounds and turgor normal GENERAL SKIN EXAM: no rashes or lesions noted and turgor normal Course Vital Signs: Vital signs: Vital Signs Temperature 98 F 12/07/22 08:00 Pulse Rate 68 12/07/22 12:10 Respiratory Rate 14 12/07/22 12:10 Blood Pressure 125/67 12/07/22 12:10 Pulse Oximetry 95 12/07/22 12:10 Oxygen Delivery Me thod Mechanical Ventil ation 12/07/22 11:26 Oxygen Flow Rate 2 12/07/22 07:23 Fraction of Inspir ed Oxygen 35 12/07/22 10:50 MDM - General Adult Medical Decision Making Physical exam completed and documented, we will obtain a CBC and CMP as well as a [id number]-mb-[id number] glucose to evaluate the patient's electrolyte status as well as infectious status. We will also obtain cardiac enzymes and a twelve-lead EKG. Given his change in mental status that is continued to deteriorate we will obtain a CT scan of his head to evaluate for intracranial pathology. Differential Diagnosis CVA, electrolyte abnormality, infection, DKA, hypoglycemia, Medical Records I reviewed the patient's medical records. Lab Data I reviewed the patient's lab results. 12/07/22 05:42 12/07/22 05:42 Radiology Impressions Chest X-Ray 12/07/22 10:44 IMPRESSION: No evidence of acute pulmonary process. Laboratory Results WBC 14.68 10^3/uL (3.29-11.43) H 12/07/22 05:42 RBC 5.47 10^6/uL (3.85-5.65) 12/07/22 05:42 Hgb 16.10 g/dL (11.27-16.99) 12/07/22 05:42 Hct 49.3 % (37-53) 12/07/22 05:42 MCV 90.1 fl (82-101) 12/07/22 05:42 MCH 29.4 pg (27-33) 12/07/22 05:42 MCHC 32.7 g/dL (30-55) 12/07/22 05:42 RDW 14.3 % (12.1-15.1) 12/07/22 05:42 Plt Count 394 10^3/cmm (157-399) 12/07/22 05:42 MPV 10.3 fL (7.4-10.4) 12/07/22 05:42 Neut % (Auto) 89.2 % 12/07/22 05:42 Lymph % (Auto) 6.1 % 12/07/22 05:42 Murray % (Auto) 2.9 % 12/07/22 05:42 Eos % (Auto) 0.2 % 12/07/22 05:42 Baso % (Auto) 0.7 % 12/07/22 05:42 Neut # (Auto) 13.09 10^3/uL (1.8-7.7) H 12/07/22 05:42 Lymph # (Auto) 0.9 10^3/uL (0.8-4.8) 12/07/22 05:42 Murray # (Auto) 0.4 10^3/uL (0.2-0.9) 12/07/22 05:42 Eos # (Auto) 0.0 10^3/uL (0.0-0.8) 12/07/22 05:42 Baso # (Auto) 0.1 10^3/uL (0.0-0.1) 12/07/22 05:42 Nucleated RBC % (auto) 0 % 12/07/22 05:42 Nucleated RBCs # 0.0 /100WBC 12/07/22 05:42 Sodium 139 mmol/L (136-145) 12/07/22 05:42 Potassium 4.7 mmol/L (3.5-5.1) 12/07/22 05:42 Chloride 99 mmol/L (98-107) 12/07/22 05:42 Carbon Dioxide 21 mmol/L (22-29) L 12/07/22 05:42 Anion Gap 23.7 (5-19) H 12/07/22 05:42 BUN 32 mg/dL (8-23) H 12/07/22 05:42 Creatinine 1.5 mg/dL (0.7-1.2) H 12/07/22 05:42 GFR Calculation Not Reportable 12/07/22 05:42 Glucose 208 mg/dL (65-115) H 12/07/22 05:42 POC Glucose 177 mg/dL (70-110) H 12/07/22 06:23 Calculated Osmolality 301 mOsm/kg (285-295) H 12/07/22 05:42 Lactic Acid 1.7 mmol/L (0.5-2.2) 12/07/22 09:21 Calcium 11.0 mg/dL (8.5-10.5) H 12/07/22 05:42 Total Bilirubin 0.4 mg/dL (0.15-1.2) 12/07/22 05:42 AST 14 U/L (0-40) 12/07/22 05:42 ALT 8 U/L (0-41) 12/07/22 05:42 Alkaline Phosphatase 177 U/L (40-130) H 12/07/22 05:42 Total Protein 9.8 g/dL (6.6-8.7) H 12/07/22 05:42 Albumin 4.8 g/dL (3.5-5.2) 12/07/22 05:42 Globulin 5.0 g/dL (1.3-4.6) H 12/07/22 05:42 Lipase 52 U/L (13-60) 12/07/22 05:42 Beta-Hydroxybutyrate 0.14 mmol/L 12/07/22 05:42 Procalcitonin 0.14 ng/mL (0-0.5) 12/07/22 05:42 Urine Color Yellow (Yellow) 12/07/22 07:34 Urine Appearance Clear (CLEAR) 12/07/22 07:34 Urine pH 5 (5-7) 12/07/22 07:34 Ur Specific Inlet 1.020 (1.005-1.030) 12/07/22 07:34 Urine Protein 3+ (Negative) H 12/07/22 07:34 Urine Glucose (UA) Trace (Normal) H 12/07/22 07:34 Urine Ketones Negative (Negative) 12/07/22 07:34 Urine Blood 2+ (Negative) H 12/07/22 07:34 Urine Nitrate Negative (Negative) 12/07/22 07:34 Urine Bilirubin Neg (Negative) 12/07/22 07:34 Urine Urobilinogen Norm mg/dL (Negative) 12/07/22 07:34 Ur Leukocyte Esterase Negative (Negative) 12/07/22 07:34 Urine RBC 0-4 /hpf (0-2) H 12/07/22 07:34 Urine WBC 0-4 /hpf (0-5) H 12/07/22 07:34 Ur Squamous Epith Cells 0-4 /hpf (0-5) H 12/07/22 07:34 Amorphous Sediment 2+ /hpf 12/07/22 07:34 Urine Bacteria Trace /hpf (NONE) 12/07/22 07:34 Hyaline Casts 5-10 /lpf H 12/07/22 07:34 Urine Mucus 2+ /hpf 12/07/22 07:34 Influenza Type A Ag negative (Negative) 12/07/22 06:33 Influenza Type B Ag negative (Negative) 12/07/22 06:33 SARS-CoV-2 Ag (Rapid) negative (Negative) 12/07/22 06:33 All radiology interpretation(s) finalized by discharge ED provider radiology interpretation(s): FINDINGS: Large amount of diffuse intraventricular blood products filling the LEFT greater than RIGHT lateral ventricles with diffuse hydrocephalus. Filling of the LEFT lateral ventricle with blood products extending into the third ventricle. Layering blood products in the RIGHT lateral ventricle and occipital horns. Obstructive hydrocephalus with moderate diffuse ventricular dilatation. Fourth ventricle remains patent. Mild LEFT to RIGHT midline shift measuring 4 to 5 mm. Low-attenuation change about the LEFT greater than RIGHT lateral ventricles likely due to transependymal edema due to obstruction. This extends about the occipital horns bilaterally. Moderate small vessel changes. Moderate parenchymal volume loss. 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 No extra-axial fluid collections. Suprasellar cistern remains patent. Intracranial vascular calcification. Paranasal sinuses and mastoid air cells are well aerated. Normal posterior nasopharynx. IMPRESSION: 1.? Diffuse intraventricular hematoma with evidence of obstructive hydrocephalus. 2.? Blood products worse in the LEFT lateral ventricle extending into the foramen of Monro and third ventricle. Layering blood products in the temporal horns. 3.? Obstructive hydrocephalus with evidence of moderate ventriculomegaly and transependymal edema. 4.? Fourth ventricle remains patent. 5.? LEFT RIGHT midline shift at the level of the lateral ventricles measuring 4 to 5 mm. R XR chest 1V portable [id number] 07/24/2019 4:11 PM FINDINGS: Lungs: Unremarkable. No consolidation. Pleural spaces: Unremarkable. No pleural effusion. No pneumothorax. Heart/Mediastinum: Unremarkable. No cardiomegaly. Bones/joints: Unremarkable. XR/XR chest 1V portable [id number] IMPRESSION: No acute findings. COMPARISON: CR XR chest 1V portable [id number] 12/07/2022 6:59 AM FINDINGS: Tubes, catheters and devices: The patient is intubated. The endotracheal tube tip is seen 5.4 cm above the josephine. There is an enteric tube projecting into the stomach. Lungs: No consolidation. Pleural spaces: Unremarkable. No pleural effusion. No pneumothorax. Heart/Mediastinum: Unremarkable. No cardiomegaly. Bones/joints: Unremarkable. XR/XR chest 1V portable [id number] IMPRESSION: No evidence of acute pulmonary process. ? Critical Care Time Critical Care Time: Critical Care Time: Yes Total Critical Care Time: 75 Attestation: This case had a high probability of a clinically significant, sudden, or life threatening deterioration of this patient's condition which required my full and direct attention, intervention and personal management. Discharge Plan Discharge Patient Disposition: [facility] Clinical Impression: AMS (altered mental status), ICH (intracerebral hemorrhage) Condition: Stable Prescriptions: No Action (DME) [place] Cushion Toe Pad See Rx Instructions .Route .MEDSUPPLY Qty: 1 0RF Rx Instructions: As directed (DME) Low profile sport orthotics See Rx Instructions .Route .MEDSUPPLY Qty: 1 0RF Rx Instructions: As directed by [employer] [facility] [employer] (DME) 15-20 compression socks 2 pairs See Rx Instructions .Route .MEDSUPPLY Qty: 1 0RF Rx Instructions: As directed (DME) Low Profile Sport Orthotics See Rx Instructions .Route .MEDSUPPLY Qty: 1 0RF Rx Instructions: As directed (DME) Diabetic Shoes with 3 sets of Custom Molded Orthotics See Rx Instructions .Route .MEDSUPPLY Qty: 1 0RF Rx Instructions: As directed by [facility] pentoxifylline 400 mg Tablet Extended Release 400 mg PO BID tamsulosin 0.4 mg capsule 0.4 mg PO DAILY Rx Instructions: TAKE LATE IN THE DAY. gemfibrozil 600 mg tablet 600 mg PO BID metformin 1,000 mg tablet 1,000 mg PO BID Rx Instructions: TAKE WITH MEALS lisinopril 10 mg Tablet 10 mg PO DAILY glipizide 5 mg tablet 5 mg PO BID Rx Instructions: TAKE WITH MEALS cholecalciferol (vitamin D3) 50 mcg (2,000 unit) capsule 50 mcg PO DAILY clopidogrel 75 mg tablet 75 mg PO DAILY Referrals: Evan Rock DO [Primary Care Provider] - Coding Level of Care Code ED [employer] Chief for Devorah Hou
[2022-12-07] MEDS: ondansetron 2 mg/ML SDV 2 mL 4 MG IVP (06:28)
[2022-12-07 06:29] LABS: Glucose Point of Care 177 mg/dL (70-110)
[2022-12-07 06:37] LABS: Basophils # 0.1 10^3/uL (0.0-0.1); Basophils % 0.7 %; Eosinophils % 0.2 %; Hematocrit 49.3 % (37-53); Lymphocytes # 0.9 10^3/uL (0.8-4.8); Lymphocytes % 6.1 %; Mean Corpuscular HGB Conc 32.7 g/dL (30-55); Mean Corpuscular Hemoglobin 29.4 pg (27-33); Mean Corpuscular Volume 90.1 fl (82-101); Mean Platelet Volume 10.3 fL (7.4-10.4); Monocytes # 0.4 10^3/uL (0.2-0.9); Monocytes % 2.9 %; Neutrophils # 13.09 10^3/uL (1.8-7.7); Neutrophils % 89.2 %; Nucleated Red Blood Cells % 0 %; Platelet Count 394 10^3/cmm (157-399); Red Blood Count 5.47 10^6/uL (3.85-5.65); Red Cell Distribution Width 14.3 % (12.1-15.1); White Blood Count 14.68 10^3/uL (3.29-11.43)
[2022-12-07 06:56] LABS: Alanine Aminotransferase 8 U/L (0-41); Albumin Level 4.8 g/dL (3.5-5.2); Alkaline Phosphatase 177 U/L (40-130); Anion Gap 23.7 (5-19); Aspartate Amino Transferase 14 U/L (0-40); Blood Urea Nitrogen 32 mg/dL (8-23); Carbon Dioxide 21 mmol/L (22-29); Chloride 99 mmol/L (98-107); Glucose 208 mg/dL (65-115); Lipase 52 U/L (13-60); Osmolality Calculated 301 mOsm/kg (285-295); Potassium 4.7 mmol/L (3.5-5.1); Sodium 139 mmol/L (136-145); Total Bilirubin 0.4 mg/dL (0.15-1.2); Total Protein 9.8 g/dL (6.6-8.7)
[2022-12-07 07:00] LABS: Influenza A by IFA negative (Negative); Influenza B by IFA negative (Negative); SARS Covid-2 Antigen negative (Negative)
--- NOTE | 2022-12-07 08:13 | PC.PHAR ---
PT UNABLE TO VERIFY MEDICATIONS. WILL CALL PHARMACY WHEN THEY OPEN AT 9AM. 12/07 8:14AM
[2022-12-07 09:01] LABS: Bacteria Urine TRACE /hpf; Bilirubin Urine Neg (Negative); Blood Urine 2+ (Negative); Glucose Urine UA Trace (Normal); Ketones Urine Negative (Negative); Leukocyte Esterase Urine Negative (Negative); Mucus Urine 2+ /hpf; Nitrate Urine Negative (Negative); Protein Urine 3+ (Negative); RBC Urine 0-4 /hpf (0-2); Squamous Epithelial Cell Urine 0-4 /hpf (0-5); Urine Appearance Clear (CLEAR); Urine Color Yellow (Yellow); Urobilinogen Urine Norm (Negative); WBC Urine 0-4 /hpf (0-5); pH Urine 5 (5-7)
[2022-12-07 09:02] LABS: Add Urine Culture? No; Amorphous Sediment Urine 2+ /hpf
[2022-12-07] MEDS: nitroglycerin 1 gm/inch oint Pkt 1 INCH TOPICAL (09:27)
[2022-12-07] MEDS: sodium chloride 0.9% 1,000 ML 999 ML IV (09:27)
[2022-12-07 09:41] LABS: Procalcitonin 0.14 ng/mL (0-0.5)
--- NOTE | 2022-12-07 09:41 | CT_ITS ---
WS: [id number] CT HEAD TECHNIQUE: Noncontrast CT of the head obtained from the skullbase to the vertex. CLINICAL INFORMATION: AMS COMPARISON: CT 2019 DLP: 1136.[address] scans at [facility] use at least one of these dose optimization techniques: automated e xposure control; mA and/or kV adjustment per patient size (includes targeted exams where dose is matc hed to clinical indication); or iterative reconstruction. FINDINGS: Large amount of diffuse intraventricular blood products filling the LEFT greater than RIGHT lateral ventricles with diffuse hydrocephalus. Filling of the LEFT lateral ventricle with blood prod ucts extending into the third ventricle. Layering blood products in the RIGHT lateral ventricle and o ccipital horns. Obstructive hydrocephalus with moderate diffuse ventricular dilatation. Fourth ventri antonio remains patent. Mild LEFT to RIGHT midline shift measuring 4 to 5 mm. Low-attenuation change abou t the LEFT greater than RIGHT lateral ventricles likely due to transependymal edema due to obstructio n. This extends about the occipital horns bilaterally. Moderate small vessel changes. Moderate parenchymal volume loss. Chronic appearing infarcts in the RI GHT greater than LEFT cerebellum. No extra-axial fluid collections. Suprasellar cistern remains paten t. Intracranial vascular calcification. Paranasal sinuses and mastoid air cells are well aerated. Nor mal posterior nasopharynx. IMPRESSION: 1. Diffuse intraventricular hematoma with evidence of obstructive hydrocephalus. 2. Blood products worse in the LEFT lateral ventricle extending into the foramen of Monro and third ventricle. Layering blood products in the temporal horns. 3. Obstructive hydrocephalus with evidence of moderate ventriculomegaly and transependymal edema. 4. Fourth ventricle remains patent. 5. LEFT RIGHT midline shift at the level of the lateral ventricles measuring 4 to 5 mm. Notified Fred Joseph MD at 12/07/2022 10:17 AM.
[2022-12-07 09:50] LABS: Lactic Sepsis W/Reflex 1.7 mmol/L (0.5-2.2)
[2022-12-07] MEDS: fentaNYL 50 mcg/mL INJ 2mL 99.8 MCG IVP (10:28)
[2022-12-07] MEDS: succinylcholine 20 mg/mL SDV 10mL 149.685 MG IV (10:28)
[2022-12-07] MEDS: midazolam 1 mg/mL INJ 2 mL 4 MG IVP (10:28)
[2022-12-07] MEDS: propofol 1,000 MG/100 ML INJ 3.59 MG IV (10:30)
--- NOTE | 2022-12-07 10:44 | XRR_ITS ---
PROCEDURE INFORMATION: Exam: XR Chest Exam date and time: 12/07/2022 10:49 AM Age: 72 years old Clinical indication: Device placement; Ett placement (vent status) TECHNIQUE: Imaging protocol: Radiologic exam of the chest. Views: 1 view. COMPARISON: CR XR chest 1V portable [id number] 12/07/2022 6:59 AM FINDINGS: Tubes, catheters and devices: The patient is intubated. The endotracheal tube tip is seen 5.4 cm above the josephine. There is an enteric tube projecting into the stomach. Lungs: No consolidation. Pleural spaces: Unremarkable. No pleural effusion. No pneumothorax. Heart/Mediastinum: Unremarkable. No cardiomegaly. Bones/joints: Unremarkable. XR/XR chest 1V portable [id number] IMPRESSION: No evidence of acute pulmonary process.
--- NOTE | 2022-12-07 10:48 | PC.NURSE ---
Patient resting in bed and refusing to urinated but agreeable to sanderson placement. Patient would not sit still for sanderson but had incontinent episode and was able to obtain a sample. Patient was AAOx1-2 this AM with NIH of 8. Approximately around 0930 patients mental status changed this nurse performed NIHSS scored 16, notified physician and got STAT CT of head. Recieved critical results as patients status deteriated patient was moved to trauma room bed 10 and intubated at at apprx 1026. Physician placed orders see SARINA charting per meds, with verbal order of Propofol to start at 6mcg and then another verbal to up to 8mcg.
--- NOTE | 2022-12-07 10:55 | PC.NURSE ---
PT WAS OBSERVED ATTEMPTING TO PULL OUT ET TUBE, DOC WAS NTFIED AND OBSERVED PT. ORDER FOR 2 POINT SOFT RESTRAINTS WAS PLACED.
--- NOTE | 2022-12-07 11:18 | PC.NURSE ---
Verbal order to increase propofol to 20mcg
[2022-12-12 04:25] LABS: Beta-Hydroxybutyrate 0.14 mmol/L
== END 2022-12-07 12:12 | disposition intermediate care facility (04) ==
PROVIDERS: Emergency Provider Internal Medicine; PCP Emergency Medicine Emergency Medical Services
DX: R41.82 Altered mental status, unspecified (principal); I62.9 Nontraumatic intracranial hemorrhage, unspecified; Z79.84 Long term (current) use of oral hypoglycemic drugs; Z79.02 Long term (current) use of antithrombotics/antiplatelets; G91.9 Hydrocephalus, unspecified; Z11.52 Encounter for screening for COVID-19; I25.10 Atherosclerotic heart disease of native coronary artery without angina pectoris; E11.9 Type 2 diabetes mellitus without complications; I10 Essential (primary) hypertension; Z87.891 Personal history of nicotine dependence
CPT/HCPCS: 36415; 36416; 51702; 70450; 71045; 80053; 81001; 82010; 82962; 83605; 83690; 84145; 85025; 87040; 87426; 87804; 94002; 94799; 96365; 96367; 96375; 99291; 99292; J0330; J2250; J2405; J2704; J3010; J7030